=== PATIENT | male | born 1930 | race Caucasian/White ===

== ENCOUNTER 2018-10-07 08:00 | Inpatient (IN) | payer OTHER, BC ==
[2018-10-02 12:14] VITALS: BMI 25.5
--- NOTE | 2018-10-07 08:00 | HP ---
Satellite [facility] - Chief Complaint Chief Complaint: right hip pain - Past Medical History Allergies/Adverse Reactions: Allergies Allergy/AdvReac Type Severity Reaction Status Date / Time shellfish derived Allergy Severe Swelling Verified 10/02/18 11:52 Penicillins Allergy Unknown ANAPHYLACTI Verified 10/02/18 11:53 C - Current Medications Current Medications: Home Medications Medication Instructions Recorded Aspirin [Aspirin EC] 81 mg PO HS 10/02/18 Atorvastatin Ca [Lipitor] 40 mg PO HS 10/02/18 Cyanocobalamin [Vitamin B12 -] 500 mcg PO DAILY 10/02/18 Docusate Sodium [Colace] 100 mg PO BID 10/02/18 Duloxetine HCl [Cymbalta] 60 mg PO DAILY 10/02/18 Finasteride 5 mg PO HS 10/02/18 Folic Acid 0.8 mg PO DAILY 10/02/18 Metoprolol Tartrate 25 mg PO BID 10/02/18 Ticagrelor [Brilinta] 90 mg PO BID 10/02/18 Satellite Physical Exam - Physical Examination General Appearance: Well Nourished, Well Developed, Alert & Oriented x3 ENT: Clear Lung: Normal air movement Heart: Regular rate & rhythm Extremities: Other (right hip- + ttp, decr rom, nvi xrays show grade 4 hip djd) Neurological: Intact, Alert, Oriented Satellite Impression/Plan - Impression/Plan Impression: right hip djd Operative Procedure: right josh thr Date to be Performed: 10/07/18
[2018-10-07] MEDS ORDERED: GABAPENTIN 300 MG CAPSULE (FP) PO ONE (08:23)
[2018-10-07] MEDS ORDERED: CELECOXIB 200 MG CAPSULE PO ONE (08:23)
[2018-10-07] MEDS ORDERED: CEFAZOLIN 2 GM in DEXTROSE 5%-WATER - 50 ML IVPB ONE (08:23)
[2018-10-07] MEDS ORDERED: TRANEXAMIC ACID 1000 MG/10 ML VIAL IVPUSH ONE (08:23)
[2018-10-07] MEDS ORDERED: VANCOMYCIN 1,000 MG VIAL (RESTRICTED TO ID ONLY) ONE ×2 (09:57→11:10)
[2018-10-07] MEDS ORDERED: DEXAMETHASONE SOD PHOSPHATE/PF 10 MG/ML SDV ONE (10:12)
[2018-10-07] MEDS ORDERED: BUPIVACAINE HCL/PF (5 MG/ML) 30 ML VIAL IJ ONE (10:12)
[2018-10-07] MEDS ORDERED: MIDAZOLAM HCL 2 MG/2 ML SINGLE DOSE VIAL ONE ×2 (10:12→11:03)
[2018-10-07] MEDS ORDERED: fentaNYL CITRATE 250 MCG/5 ML VIAL ONE (11:03)
[2018-10-07] MEDS ORDERED: ROCURONIUM BROMIDE 50 MG/5 ML VIAL ONE (11:03)
[2018-10-07] MEDS ORDERED: ceFAZolin SODIUM 1 GM VIAL ONE (11:10)
[2018-10-07] MEDS ORDERED: ePHEDrine SULFATE 50 MG/1 ML AMPULE ONE (12:44)
[2018-10-07] MEDS ORDERED: MAG HYDROX/AL HYDROX/SIMETH 30 ML UNIT-DOSE CUP PO PRN (13:01)
[2018-10-07] MEDS ORDERED: MAGNESIUM HYDROX 2400MG/30ML ORAL SUSPENSION 30 ML CUP PO PRN (13:01)
[2018-10-07] MEDS ORDERED: ONDANSETRON 4 MG/2 ML VIAL IVPUSH PRN ×2 (13:01)
[2018-10-07] MEDS ORDERED: oxyCODONE HCL 5 MG TABLET PO PRN (13:02)
--- NOTE | 2018-10-07 13:03 | OP ---
Operative Note - Note: Operative Date: 10/07/18 (pratibha) Pre-Operative Diagnosis: right hip djd Operation: right josh thr Post-Operative Diagnosis: Same as Pre-op Surgeon: Zion García [employer] Production Machine Operator: Freddy Salomon Anesthesiologist/MEDICAL RECORDS LIBRARY PROFESSOR: Trae Temple Anesthesia: General, Local Specimens Removed: femoral head Estimated Blood Loss (mls): 150 Operative Report Dictated: Yes
[2018-10-07] MEDS ORDERED: NEOSTIGMINE METHYLSULFATE 0.5 MG/ML - 10 ML MDV ONE (13:12)
[2018-10-07] MEDS ORDERED: LACTATED RINGERS SOLUTION 1,000 ML IV SCH ×2 (13:15)
--- NOTE | 2018-10-07 17:54 | SPEC ---
DATE OF OPERATION: 10/07/2018 PREOPERATIVE DIAGNOSIS: Degenerative joint disease, right hip. POSTOPERATIVE DIAGNOSIS: Degenerative joint disease, right hip. PROCEDURE PERFORMED: Right total hip replacement with robotic-assisted navigation (MAKOplasty). SURGICAL ATTENDING: Zion García MD GAS MAKER: OBDULIA Dalal ANESTHESIA: Regional and spinal. CLOSURE: A Josh Total Hip System with a 54 Trident II press-fit acetabulum, with a number 8 Accolade II femoral stem, a metallic 36-mm plus 5 neck femoral head. Number 1 Vicryl for fascia, 0 and 2-0 subcutaneous, 3-0 V-Loc for skin, 4-0 undyed Vicryl for pin sites. ESTIMATED BLOOD LOSS: Approximately 150 mL. COMPLICATIONS: None. CONDITION: To the recovery room in stable condition. DESCRIPTION OF PROCEDURE: The patient was taken to the operating room on October 07, 2018. General and regional anesthesia was administered by the anesthesiologist. IV Kefzol and TXA were administered prophylactically prior to the case. The patient was placed in the lateral decubitus position will all prominences well-padded. The right hip area was prepped and draped in the usual sterile fashion. Using 3 small stab incisions over the iliac crest, 3 threaded pins were drilled in power fashion through the 2 tables of the crest. These pins were fastened and the navigation array for the Wolf navigation system. Next, a 12 to 15-cm curved longitudinal incision over the posterolateral aspect of the greater trochanter was incised. Hemostasis was achieved with Bovie cautery. Sharp dissection was carried down to level of the fascia. The fascia was opened the entire length of the incision, spreading the fibers of the gluteus janes in the direction of origin. A Charnley retractor was placed in this layer. Care was taken not to impale the sciatic nerve. The short external rotators were detached off the insertion of the greater trochanter and peeled off the capsule. A posterior capsulotomy was then performed. A check point was malleted into the greater trochanter and a point on the inferior pole of the patella was obtained as well. These 2 points were used to assess the preoperative offset and limb lengths of the hip. The hip was then dislocated. The femoral neck was then osteotomized down to the appropriate level as directed by the navigation device. Anterior and posterior retractors were placed, exposing the acetabulum. A circumferential labral excision was performed. A check point was malleted into the acetabulum as well. Multiple sites inside the acetabulum and around the rim were utilized to register the acetabulum with the navigation device. An excellent registration of less than 0.5 mm was obtained. The hip was then reamed with the appropriate reamer down to the appropriate depth, with the appropriate orientation and version as assessed on our preoperative plan for this patient. The reamer was removed and the acetabulum was inspected to have good bleeding surfaces throughout. The real acetabular cup was then malleted down into place, with the holes in the appropriate position, until an excellent fixation was obtained. No screws were necessary. The navigation device ensured appropriate orientation and version, with the depth as predetermined. The appropriate liner was then clipped into place. Attention was directed to the femur. The proximal femur was prepared by use a box chisel, a canal finder and serial broaches until the broach achieved excellent rigidity in the proximal femur with the appropriate version being applied. A calcar planer was used to smooth off the calcar flush with the trial components. A trial reduction with the appropriate head was done, and the hip was reduced. The hip was taken through a range of motion from full extension with external rotation to marked flexion, and was stable at 90 degrees of flexion. It was stable to marked abduction and internal rotation, with a positive hang test and negative telescoping. Limb lengths were ascertained visually as well as with the navigation device to be within the targeted range for this patient. The trial component was removed. The real component was then malleted into place. The head was cold welded to the trunnion, and the hip was reduced. Range of motion, stability and limb lengths were as described in the trial component. Then the hip was pulse antibiotic irrigated. Vancomycin powder was placed in the hip joint. The capsule was closed. The fascia was then closed as well using number 1 Vicryl interrupted suture, 0 and 2-0 subcutaneous, and 3-0 V-Loc for the skin. 4-0 undyed Vicryl was used to close the pin sites after the pins were removed. All check points were also removed. Sterile Aquacel dressing was applied. The patient was awakened from anesthesia and transferred into the supine position. Bilateral SCDs and an abduction pillow were placed. X-rays revealed excellent position of the components. The patient was transferred to the recovery room in stable condition, with no complications. Estimated blood loss was less than 100 mL. Marie CASTILLO/[id number]
[2018-10-07] MEDS: ACETAMINOPHEN 325 MG TABLET (FP) PO SCH ×2 (18:41→19:55)
[2018-10-07] MEDS: GABAPENTIN 100 MG CAPSULE (FP) PO SCH ×2 (18:41→21:32)
[2018-10-07] MEDS: CEFAZOLIN 2 GM/D5W 2 GM/50 ML ML IVPB SCH (19:56)
[2018-10-07] MEDS: SENNOSIDES/DOCUSATE COMBO (SENNA PLUS) TABLET (UD) PO SCH (21:32)
[2018-10-07] MEDS: ATORVASTATIN CA 40 MG TABLET (FP) PO SCH (21:32)
[2018-10-07] MEDS: METOPROLOL TARTRATE 25 MG TABLET (FP) PO SCH (21:33)
[2018-10-07] MEDS: FINASTERIDE 5 MG TABLET (FP) PO SCH (21:33)
[2018-10-08] MEDS: ACETAMINOPHEN 325 MG TABLET (FP) PO SCH ×4 (01:17→18:45)
[2018-10-08] MEDS: CEFAZOLIN 2 GM/D5W 2 GM/50 ML ML IVPB SCH ×2 (04:00→11:54)
[2018-10-08] MEDS: GABAPENTIN 100 MG CAPSULE (FP) PO SCH ×3 (06:26→21:17)
[2018-10-08] MEDS: oxyCODONE HCL 5 MG TABLET PO PRN ×2 (06:26→20:26)
[2018-10-08 08:01] LABS: HEMATOCRIT 30.8 % (35.4-49); HEMOGLOBIN 10.1 GM/dl (11.7-16.9); MCH 32.6 pg (25.7-33.7); MCHC 32.7 g/dl (32.0-35.9); MEAN CELL VOLUME 99.8 fl (80-96); MEAN PLT VOLUME 8.1 fl (7.5-11.1); PLATELET COUNT 225 K/MM3 (134-434); RBC 3.08 M/mm3 (4.00-5.60); RDW 13.9 % (11.9-15.9); WHITE BLOOD COUNT 11.9 K/mm3 (4.0-10.8)
--- NOTE | 2018-10-08 08:45 | PN ---
Progress Note (short form) - Note Progress Note: Pt is POD1 s/p right THR under block/spinal anesthesia. Pt is doing well today - minimal pain noted. He's scheduled for PT at 9am today. No anesthetic issues /complications.
[2018-10-08] MEDS ORDERED: PT OWN MED DRAWER 7, Y5N ONE ×2 (09:28→20:11)
[2018-10-08] MEDS: TICAGRELOR 90 MG TABLET PO SCH ×2 (10:00→21:17)
[2018-10-08] MEDS: PANTOPRAZOLE 40 MG TABLET (FP) PO SCH (10:00)
[2018-10-08] MEDS: SENNOSIDES/DOCUSATE COMBO (SENNA PLUS) TABLET (UD) PO SCH ×2 (10:01→21:16)
[2018-10-08] MEDS: METOPROLOL TARTRATE 25 MG TABLET (FP) PO SCH ×2 (10:01→21:18)
[2018-10-08] MEDS: DULoxetine HCL 30 MG CAPSULE.DR (FP) PO SCH (10:01)
[2018-10-08] MEDS: MULTIVITAMINS (DAILY MVI) TABLET (FP) PO SCH (10:01)
--- NOTE | 2018-10-08 11:53 | PN ---
Progress Note (short form) - Note Progress Note: Ortho Pt seen and examined s/p right josh thr pod #1 Selected Entries 10/08/18 05:00 Temperature 98.5 F Pulse Rate 78 Respiratory 19 Rate Blood Pressure 132/73 Laboratory Tests 10/08/18 07:20 WBC 11.9 H Hgb 10.1 L Hct 30.8 L Plt Count 225 dressing c/d/i, calf soft, nt nvi a/p PT hip precautions dvt ppx pain control d/c home tomorrow if stable
[2018-10-08] MEDS: FINASTERIDE 5 MG TABLET (FP) PO SCH (21:17)
[2018-10-08] MEDS: ATORVASTATIN CA 40 MG TABLET (FP) PO SCH (21:17)
[2018-10-08] MEDS ORDERED: ASPIRIN COATED 81 MG TABLET.EC PO SCH (22:00)
[2018-10-09] MEDS: ACETAMINOPHEN 325 MG TABLET (FP) PO SCH ×2 (05:18→08:20)
[2018-10-09] MEDS: GABAPENTIN 100 MG CAPSULE (FP) PO SCH (05:18)
[2018-10-09] MEDS: oxyCODONE HCL 5 MG TABLET PO PRN (05:18)
[2018-10-09 06:39] VITALS: TEMP 98.5
[2018-10-09 08:27] LABS: HEMATOCRIT 30.5 % (35.4-49); HEMOGLOBIN 9.8 GM/dl (11.7-16.9); MCH 31.9 pg (25.7-33.7); MCHC 31.9 g/dl (32.0-35.9); MEAN CELL VOLUME 99.9 fl (80-96); MEAN PLT VOLUME 8.3 fl (7.5-11.1); PLATELET COUNT 219 K/MM3 (134-434); RBC 3.06 M/mm3 (4.00-5.60); RDW 14.1 % (11.9-15.9); WHITE BLOOD COUNT 10.6 K/mm3 (4.0-10.8)
--- NOTE | 2018-10-09 08:37 | PN ---
Progress Note (short form) - Note Progress Note: Ortho Pt seen and examined s/p right josh thr pod #2 Selected Entries 10/09/18 06:00 Temperature 98.5 F Pulse Rate 78 Respiratory 19 Rate Blood Pressure 126/64 Laboratory Tests 10/09/18 07:04 WBC Pending Hgb Pending Hct Pending Plt Count Pending dressing c/d/i, calf soft, nt nvi a/p PT hip precautions dvt ppx pain control d/c home today f/u in 1 week
--- NOTE | 2018-10-09 08:38 | DS ---
Physical Examination Vital Signs: Vital Signs Temperature 98.5 F 10/09/18 06:00 Pulse Rate 78 10/09/18 06:00 Respiratory Rate 19 10/09/18 06:00 Blood Pressure 126/64 10/09/18 06:00 O2 Sat by Pulse Oximetry (%) 100 10/09/18 07:57 Discharge Summary Reason For Visit: OSTEOARTHRITIS Procedures: Principal: right thr Hospital Course: admitted for elective right josh thr, uneventful post-op, stable for d/c Condition: Good - Instructions Diet, Activity, Other Instructions: Post-op Instructions-Total Hip Replacement Call the office for a follow-up appointment in 1 week - [phone] Resume all home medications. Pain medication was sent into your pharmacy. Apply Graduated Compression Stockings (TEDs) to both lower extremities- remove daily for hygiene ONLY Apply Sequential Compression Device (SCDs) to both Lower extremities remove for PT and hygiene ONLY Apply cold packs to affected area for 15 minutes every 2 hours. Physical Therapist will come to your home for the first 5 days. You will be set up with outpatient PT at your first post-operative visit. Patient may ambulate as tolerated-encourage self care (at least every 2-3 hours while awake) with walker or cane Maintain Aquacel (waterproof) dressing to operative wound (will be removed by surgeon at first office visit) Shower with Aquacel dressing in place-if Aquacel integrity compromised, remove and apply dry sterile dressing and notify Orthopedist. DO NOT SHOWER unless Orthopedists approves without Aquacel dressing CONTACT THE OFFICE FOR ANY CHANGE IN YOUR CONDITION (for example-fever greater than 102 degrees, excessive bleeding from operative site, purulent drainage, severe swelling or pain) GO TO THE EMERGENCY ROOM IF THERE IS A MEDICAL EMERGENCY Hip Precautions: * Keep a rolled towel under affected heel while in bed or chair (to keep knee in extension) * Dependent upon approach: * Posterior - do not cross legs; do not sit on low chairs or toilets. * If you have any questions, please do not hesitate to call the office - . Referrals: Zion García MD [Staff Physician] - Disposition: VNS/HOME HEALTH CARE - Home Medications Comprehensive Discharge Medication List: Ambulatory Orders Aspirin [Aspirin EC] 81 mg PO HS 10/02/18 Atorvastatin Ca [Lipitor] 40 mg PO HS 10/02/18 Cyanocobalamin [Vitamin B12 -] 500 mcg PO DAILY 10/02/18 Docusate Sodium [Colace] 100 mg PO BID 10/02/18 Duloxetine HCl [Cymbalta] 60 mg PO DAILY 10/02/18 Finasteride 5 mg PO HS 10/02/18 Folic Acid 0.8 mg PO DAILY 10/02/18 Metoprolol Tartrate 25 mg PO BID 10/02/18 Ticagrelor [Brilinta -] 90 mg PO BID 10/02/18 Gabapentin 200 mg PO TID 10/07/18 Oxycodone HCl/Acetaminophen [Percocet 5-325 mg Tablet -] 1 - 2 tab PO Q6H #50 tab MDD 8 10/07/18 Tramadol HCl 50 mg PO PRN PRN 10/07/18
[2018-10-09] MEDS ORDERED: PT OWN MED DRAWER 7, Y5N ONE (09:44)
[2018-10-09] MEDS: TICAGRELOR 90 MG TABLET PO SCH (09:54)
[2018-10-09] MEDS: DULoxetine HCL 30 MG CAPSULE.DR (FP) PO SCH (09:54)
[2018-10-09] MEDS: MULTIVITAMINS (DAILY MVI) TABLET (FP) PO SCH (09:56)
[2018-10-09] MEDS: SENNOSIDES/DOCUSATE COMBO (SENNA PLUS) TABLET (UD) PO SCH (09:57)
[2018-10-09] MEDS: PANTOPRAZOLE 40 MG TABLET (FP) PO SCH (09:58)
[2018-10-09] MEDS: METOPROLOL TARTRATE 25 MG TABLET (FP) PO SCH ×2 (09:58→10:05)
[2018-10-09 10:05] VITALS: BP 94/54; PULSE 90
--- NOTE | 2018-10-10 17:40 | PATH ---
Surgical Pathology Report Patient Name: GLORIA PETERSON Med. Rec. #: [id number] /Age/Gender: 1930 (Age: 88) / M Account: [id number] Location: [facility] MED-SURG Taken: 10/07/2018 Received: 10/07/2018 Reported: 10/10/2018 Physicians: Zion García M.D. Specimen(s) Received RIGHT FEMORAL HEAD Clinical History Osteoarthritis Final Diagnosis RIGHT FEMORAL HEAD, RESECTION: DEGENERATIVE JOINT DISEASE, RIGHT HIP. Electronically Signed Rama Askew M.D. Gross Description Received in formalin, labeled "right femoral head," is a 5.0 x 5.0 x 4.8 cm. femoral head with a 0.8 cm in length portion of femoral neck attached. The margin of resection is smooth. There is a 5.5 cm greatest dimension area of eburnation present. The remaining articular surface is kim-yellow and diffusely nodular and granular. The underlying trabecular bone is yellow and hard. A player services representative section is submitted in one cassette, following decalcification. 10/09/2018 [facility]10/09/2018
== END 2018-10-09 11:00 | disposition home health service (06) | DRG 470 ==
LOC: FM/S 08:09
PROVIDERS: ADMIT Orthopaedic Surgery; ATTEND Orthopaedic Surgery
PROC: 8E0Y0CZ Robotic Assisted Procedure of Lower Extremity, Open Approach (ICD-10-PCS; 2018-10-07)
PROC: 0SR901A Replacement of Right Hip Joint with Metal Synthetic Substitute, Uncemented, Open Approach (ICD-10-PCS; principal; 2018-10-07 11:56)
DX: M16.11 Unilateral primary osteoarthritis, right hip (principal); Z88.0 Allergy status to penicillin
CPT/HCPCS: 36415; 73502-TC-RT-FY; 85027; 88304-TC; 88311-TC; 94760; 97116-GP; 97163-GP

== ENCOUNTER 2018-11-23 16:03 | Inpatient (IN) | payer OTHER, BC ==
--- NOTE | 2018-11-23 16:23 | PDOC ---
History of Present Illness - General Chief Complaint: Respiratory Stated Complaint: FEVER Time Seen by Provider: 11/23/18 16:21 - History of Present Illness Initial Comments: 11/23/18 16:22 88 yo M with h/o HTN, CAD s/p stent placement x 5, chronic prostatitis who p/w fever, and general malaise. Per patient family at bedside patient with general malaise beginning Saturday11/19/2018. Reports Tmax 103 Saturday11-22-2018. Has received multiple doses of Tylenol over multiple days. Patient with increased fatigue over 3-4 days. Also endorses ongoing dysuria from chronic prostatitis multiple years. Also endorses decreased appetitie and decreased PO intake. Patient denies ANAYA, vision change, palpitations, cough, wheezing, orthopena, PND , leg swelling/pain, N/V, F,C, CP, SOB, hematuria, BPR, abdominal pain, diarrhea , constipation, lightheadedness, weakness, sensory changes. PMHx: as noted above ROS: as noted SHx: Denies Etoh, IVDA, tobacco use Allergies: PCN, Shellfish Past History - Past Medical History Allergies/Adverse Reactions: Allergies Allergy/AdvReac Type Severity Reaction Status Date / Time shellfish derived Allergy Severe Swelling Verified 11/23/18 16:10 Penicillins Allergy Unknown ANAPHYLACTI Verified 11/23/18 16:10 C Home Medications: Ambulatory Orders Atorvastatin Ca [Lipitor] 40 mg PO HS 10/02/18 Duloxetine HCl [Cymbalta] 60 mg PO DAILY 10/02/18 Metoprolol Tartrate 25 mg PO BID 10/02/18 Ticagrelor [Brilinta -] 90 mg PO BID 10/02/18 Aspirin [Ecotrin] 81 mg PO DAILY 11/23/18 Finasteride [Proscar] 5 mg PO DAILY 11/23/18 Anemia: No Asthma: No Cancer: No Cardiac Disorders: Yes (2016-- FEELING HARDER TO WALK UP HILL,+STRESS TEST-CARD CATH-5 STENTS LAD,) CVA: No COPD: No CHF: No Dementia: No Diabetes: No GI Disorders: Yes (GERD) Disorders: Yes (BPH) HTN: Yes Hypercholesterolemia: Yes Liver Disease: No Seizures: No Thyroid Disease: No - Surgical History Abdominal Surgery: Yes (UMBILICAL HERNIA REPAIR 2012) Appendectomy: Yes (RUPTURED 2011) Cardiac Surgery: Yes (CARDIAC STENT X5 2016) Cholecystectomy: No Lung Surgery: No Neurologic Surgery: No Orthopedic Surgery: No - Suicide/Smoking/Psychosocial Hx Smoking History: Never smoked Have you smoked in the past 12 months: No Hx Alcohol Use: Yes (SOCIALLY) Drug/Substance Use Hx: No Substance Use Type: Alcohol Hx Substance Use Treatment: No Review of Systems - Review of Systems Comments:: 11/23/18 16:23 GENERAL/CONSTITUTIONAL: + fever. No chills. No weakness. HEAD, EYES, EARS, NOSE AND THROAT: No change in vision. No ear pain or discharge. No sore throat. CARDIOVASCULAR: No chest pain or shortness of breath RESPIRATORY: No cough, wheezing, or hemoptysis. GASTROINTESTINAL: No nausea, vomiting, diarrhea or constipation. GENITOURINARY:+ dysuria. No frequency, or change in urination. MUSCULOSKELETAL: No joint or muscle swelling or pain. No neck or back pain. SKIN: No rash NEUROLOGIC: No headache, vertigo, loss of consciousness, or change in strength/ sensation. ENDOCRINE: No increased thirst. No abnormal weight change HEMATOLOGIC/LYMPHATIC: No anemia, easy bleeding, or history of blood clots. ALLERGIC/IMMUNOLOGIC: No hives or skin allergy. *Physical Exam - Vital Signs Last Vital Signs Temp Pulse Resp BP Pulse Ox 97 F L 110 H 20 166/91 98 11/23/18 16:06 11/23/18 16:06 11/23/18 16:06 11/23/18 16:06 11/23/18 16:06 - Physical Exam Comments: 11/23/18 16:23 GENERAL: Awake, alert, and fully oriented, in no acute distress HEAD: No signs of trauma, normocephalic, atraumatic EYES: PERRLA, EOMI, sclera anicteric, conjunctiva clear ENT: Auricles normal inspection, hearing grossly normal, nares patent, oropharynx clear without exudates. Moist mucosa NECK: Normal ROM, supple, no lymphadenopathy, JVD, or masses LUNGS: No distress, speaks full sentences, clear to auscultation bilaterally HEART: Regular rate and rhythm, normal S1 and S2, no murmurs, rubs or gallops, peripheral pulses normal and equal bilaterally. ABDOMEN: Soft, nontender, normoactive bowel sounds. No guarding, no rebound. No masses EXTREMITIES : Normal inspection, Normal range of motion, no edema. No clubbing or cyanosis. NEUROLOGICAL: Cranial nerves II through XII grossly intact. Normal speech, normal gait, no focal sensorimotor deficits SKIN: Warm, Dry, normal turgor, no rashes or lesions noted ED Treatment Course - LABORATORY CBC & Chemistry Diagram: 11/23/18 17:08 11/23/18 17:08 Medical Decision Making - Medical Decision Making 11/23/18 16:48 88 yo M with h/o HTN, chronic prostatitis who p/w fever, and general malaise. HR 110, Rectal Temp 101.9, vitals otherwise wnl. Physical exam unremarkable. Pt. with dry mucous membranes. Will assess for VBI/TIA, cardiac dysarrythmias, hypoglycemia, electrolyte abnml, metabolic and toxic derangements, acid-base disturbances, infection. ED Course: Sepsis Protocol 11/23/18 17:37 EKG: Sinus Tachycardia with HR 114, with absent SKYLER, STD. Nml interval duration and axis. Nml R wave progression. 11/23/18 19:38 Laboratory Tests 11/23/18 11/23/18 11/23/18 17:08 17:08 17:08 WBC 5.8 Hgb 10.7 L Hct 31.5 L Plt Count 267 VBG pH POC VBG pCO2 POC VBG pO2 VBG HCO3 BUN 34 H Creatinine 1.6 H Lactic Acid Troponin I 0.43 H Urine Color Urine Protein Urine Ketones Urine Blood Urine Nitrite Ur Leukocyte Esterase Urine WBC (Auto) Urine RBC (Auto) Urine Casts (Auto) Urine Bacteria (Auto) 11/23/18 11/23/18 11/23/18 17:08 17:08 17:08 WBC Hgb Hct Plt Count VBG pH 7.44 H POC VBG pCO2 28.0 L POC VBG pO2 47.2 H VBG HCO3 18.6 L BUN Creatinine Lactic Acid 4.1 H* Troponin I Urine Color Yellow Urine Protein 2+ H Urine Ketones Trace H Urine Blood 1+ H Urine Nitrite Negative Ur Leukocyte Esterase 3+ H Urine WBC (Auto) 358 Urine RBC (Auto) 4 Urine Casts (Auto) 11 Urine Bacteria (Auto) 1515.3 Patient recieving wt. based fluids per sepsis guidelines treating UTI, Levaquin 750 IV Plan to admit for sepsis, UTI, GILMA, Patient endorsed to Dr. Ward. Admit to med/surg Dr. Sesay. *DC/Admit/Observation/Transfer Diagnosis at time of Disposition: GILMA (acute kidney injury) Sepsis Qualifiers: Sepsis type: sepsis due to unspecified organism Qualified Code(s): A41.9 - Sepsis, unspecified organism UTI (urinary tract infection) Qualifiers: Urinary tract infection type: site unspecified Hematuria presence: without hematuria Qualified Code(s): N39.0 - Urinary tract infection, site not specified - Discharge Dispostion Condition at time of disposition: Stable Decision to Admit order: Yes - Referrals Referrals: Francisco Javier Chamorro [Primary Care Provider] - - Patient Instructions - Post Discharge Activity
[2018-11-23] MEDS ORDERED: SODIUM CHLORIDE 2,395 ML IV ONE (16:49)
[2018-11-23 17:17] LABS: BASO % 0.2 % (0-2.0); EOS % 0.1 % (0-4.5); HEMATOCRIT 31.5 % (35.4-49); HEMOGLOBIN 10.7 GM/dL (11.7-16.9); LYMPH % 3.4 % (8-40); MCH 32.8 pg (25.7-33.7); MEAN CELL VOLUME 96.4 fl (80-96); MEAN PLT VOLUME 7.6 fl (7.5-11.1); MONO % 0.6 % (3.8-10.2); NEUT % 95.7 % (42.8-82.8); PLATELET COUNT 267 K/MM3 (134-434); RBC 3.26 M/mm3 (4.00-5.60); RDW 14.7 % (11.9-15.9); WHITE BLOOD COUNT 5.8 K/mm3 (4.0-10.0)
[2018-11-23 17:23] LABS: EPI CELLS 3.9 /HPF (0-5/HPF); URINE APPEARANCE CLOUDY; URINE BACTERIA 1515.3 /hpf (NEGATIVE); URINE BILIRUBIN NEGATIVE (NEGATIVE); URINE CASTS 11 /lpf (0-8); URINE COLOR YELLOW; URINE GLUCOSE (UA) NEGATIVE (NEGATIVE); URINE KETONE TRACE (NEGATIVE); URINE LEUK ESTERASE 3+ (NEGATIVE); URINE NITRITE NEGATIVE (NEGATIVE); URINE PROTEIN 2+ (NEGATIVE); URINE RBC 4 /hpf (0-4); URINE WBC 358 /hpf (0-5)
[2018-11-23 17:30] LABS: VENOUS PH 7.44 (7.31-7.41); VENOUS PO2 47.2 mmHg (30-40)
[2018-11-23 17:32] LABS: INR 1.08 (0.83-1.09); PROTHROMBIN TIME (PATIENT) 12.8 SEC (9.7-13.0)
[2018-11-23 17:34] LABS: ACTIVATED PTT 28.3 SECONDS (25.2-36.5)
[2018-11-23 17:48] LABS: ALBUMIN 2.9 g/dl (3.4-5.0); ALK PHOS 339 U/L (45-117); ANION GAP 14 MMOL/L (8-16); BILIRUBIN,TOTAL 0.8 mg/dL (0.2-1); BLOOD UREA NITROGEN 34 mg/dL (7-18); CALCIUM 8.3 mg/dL (8.5-10.1); CHLORIDE 106 mmol/L (98-107); CO2 19 mmol/L (21-32); CREATININE 1.6 mg/dL (0.55-1.3); GLUCOSE,RANDOM 107 mg/dL (74-106); POTASSIUM 3.8 mmol/L (3.5-5.1); SGOT/AST 35 U/L (15-37); SGPT/ALT 39 U/L (13-61); SODIUM 139 mmol/L (136-145); TOT PROT 5.9 g/dl (6.4-8.2)
[2018-11-23] MEDS ORDERED: LORazepam 2 MG/ML SDV VIAL ONE (19:27)
[2018-11-23 19:31] LABS: ANISOCYTOSIS 1+; MACROCYTOSIS 1+; PLATELET ESTIMATE NORMAL
[2018-11-23] MEDS ORDERED: SODIUM CHLORIDE 1,000 ML IV STA (19:41)
[2018-11-23] MEDS ORDERED: ACETAMINOPHEN 500 MG TABLET (FP) PO STA (19:56)
[2018-11-23] MEDS ORDERED: ACETAMINOPHEN 325 MG TABLET (FP) ONE (20:05)
--- NOTE | 2018-11-23 20:14 | PDOC ---
Documentation entered by Tristen Goode SCRIBE, acting as scribe for Karie Reyna MD. Karie Reyna MD: This documentation has been prepared by the Russel gaytan Daniel, SCRIBE, under my direction and personally reviewed by me in its entirety. I confirm that the documentation accurately reflects all work, treatment, procedures, and medical decision making performed by me. Attending Attestation - HPI HPI: 11/23/18 17:37 The patient is a 88 year old male with a past medical history of HTN, CAD (s/p stents x5), prostatitis, and anxiety here today for evaluation of fever. The patients family reports that the patient has had fevers (tmax 103) for the past 3-4 days. The patients family has been treating the patient with multiple doses of tylenol. Patient also has symptoms of malaise, general fatigue, and chronic dysuria. Patients family also notes that the patient has had decreased appetite and PO intake. Patient denies headache, lightheadedness. Denies fever, chills. Denies chest pain, shortness of breath. Denies nausea, vomiting, diarrhea, abdominal pain. Allergies: shellfish derived, penicillins PCP: Francisco Javier Chamorro - Physicial Exam PE: 11/23/18 18:12 wnwd 88 yo male has a fever,dysuria,decreased appetite head ncat neck suppl elungs cta b/l cvs tachycardia abd flat,nontender lungs cta b/l skin warm and dry no cva tenderness neuro axox3,moving all extremities psych very anxious 11/23/18 18:22 - Medical Decision Making 11/23/18 18:51 pt is tachycardia and febrile cbc no leukocytosis UA +358 wbc, +3 destiny LACTIC ACID =4.1 renal insufficiency cr 1.6, bun>30 troponin is 0.43 and he needs to be admitted for tropponin repeat imp urosepsis plan iv antibiotics/admission
[2018-11-23] MEDS: SODIUM CHLORIDE 1,000 ML IV SCH ×2 (20:30→21:44)
--- NOTE | 2018-11-23 20:44 | HP ---
CHIEF COMPLAINT: fever, malaise, dysuria PCP: HISTORY OF PRESENT ILLNESS: Patient is an 88 y/o M w/ PMHx HTN, CAD s/p stents x 5, chronic prostatitis, p/ w 4 days fever (Tmax 103 at home), malaise, lethargy, decreased appetite, worsening acute dysuria on chronic dysuria (long-standing prostatitis). ROS otherwise negative. On presentation, T 101.9, HR 110, vitals otherwise stable. EKG showing sinus tachycardia without acute ST changes, QTc 438. No leukocytosis. Cr 1.6 with no prior available. Initial lactate 4.1, initial troponin 0.43 with no prior available. UA grossly positive, 3+ LE 358 WBC 1515 bacteria. Given tylenol, IV fluid resuscitation, and levofloxacin in ED. Recent Travel: PAST MEDICAL HISTORY: As per HPI PAST SURGICAL HISTORY: Ulysses MANDEL Social History: Smoking: no Alcohol: social Drugs: no Family History: Allergies shellfish derived Allergy (Severe, Verified 11/23/18 16:10) Swelling Penicillins Allergy (Unknown, Verified 11/23/18 16:10) ANAPHYLACTIC HOME MEDICATIONS: Home Medications Medication Instructions Recorded Atorvastatin Ca [Lipitor] 40 mg PO HS 10/02/18 Duloxetine HCl [Cymbalta] 60 mg PO DAILY 10/02/18 Metoprolol Tartrate 25 mg PO BID 10/02/18 Ticagrelor [Brilinta -] 90 mg PO BID 10/02/18 Aspirin [Ecotrin] 81 mg PO DAILY 11/23/18 Finasteride [Proscar] 5 mg PO DAILY 11/23/18 REVIEW OF SYSTEMS As per HPI PHYSICAL EXAMINATION Vital Signs - 24 hr 11/23/18 11/23/18 16:06 18:05 Temperature 97 F L 101.9 F H Pulse Rate 110 H Respiratory 20 Rate Blood Pressure 166/91 O2 Sat by Pulse 98 Oximetry (%) GENERAL: A&Ox3, NAD HEENT: NC/AT, PERRLA, EOMI, MMM NECK: Normal range of motion, supple without lymphadenopathy, JVD, or masses. LUNGS: CTA b/l HEART: tachycardic no m/r/g ABDOMEN: +bs, soft, NT, ND UPPER EXTREMITIES: 2+ pulses, warm, well-perfused. No cyanosis. No clubbing. No peripheral edema. LOWER EXTREMITIES: 2+ pulses, warm, well-perfused. No calf tenderness. No peripheral edema. NEUROLOGICAL: spike maker, motor, sensory systems w/o focal deficit PSYCHIATRIC: Cooperative. Good eye contact. Appropriate mood and affect. SKIN: Warm, dry, normal turgor, no rashes or lesions noted, normal capillary refill. Laboratory Results - last 24 hr 11/23/18 11/23/18 11/23/18 17:08 17:08 17:08 WBC 5.8 RBC 3.26 L Hgb 10.7 L Hct 31.5 L MCV 96.4 H MCH 32.8 MCHC 34.0 RDW 14.7 Plt Count 267 MPV 7.6 Absolute Neuts (auto) 5.5 Neutrophils % 95.7 H Neutrophils % (Manual) 73.0 Band Neutrophils % 20.0 Lymphocytes % 3.4 L Lymphocytes % (Manual) 7.0 L Monocytes % 0.6 L Monocytes % (Manual) 0 L Eosinophils % 0.1 Eosinophils % (Manual) 0.0 Basophils % 0.2 Basophils % (Manual) 0.0 Myelocytes % (Man) 0 Promyelocytes % (Man) 0 Blast Cells % (Manual) 0 Nucleated RBC % 0 Metamyelocytes 0 Hypochromia 0 Platelet Estimate Normal Platelet Comment Present Polychromasia 1+ Poikilocytosis 0 Anisocytosis 1+ Microcytosis 1+ Macrocytosis 1+ PT with INR INR PTT (Actin FS) VBG pH POC VBG pCO2 POC VBG pO2 VBG HCO3 VBG O2 Sat (Zach) VBG Base Excess Sodium 139 Potassium 3.8 Chloride 106 Carbon Dioxide 19 L Anion Gap 14 BUN 34 H Creatinine 1.6 H Creat Clearance w eGFR 41.19 Random Glucose 107 H Lactic Acid Calcium 8.3 L Total Bilirubin 0.8 AST 35 ALT 39 Alkaline Phosphatase 339 H Creatine Kinase 166 Creatine Kinase Index 1.5 CK-MB (CK-2) 2.5 Troponin I 0.43 H Total Protein 5.9 L Albumin 2.9 L Urine Color Urine Appearance Urine pH Ur Specific [place] Urine Protein Urine Glucose (UA) Urine Ketones Urine Blood Urine Nitrite Urine Bilirubin Urine Urobilinogen Ur Leukocyte Esterase Urine WBC (Auto) Urine RBC (Auto) Urine Casts (Auto) U Epithel Cells (Auto) Urine Bacteria (Auto) 11/23/18 11/23/18 11/23/18 17:08 17:08 17:08 WBC RBC Hgb Hct MCV MCH MCHC RDW Plt Count MPV Absolute Neuts (auto) Neutrophils % Neutrophils % (Manual) Band Neutrophils % Lymphocytes % Lymphocytes % (Manual) Monocytes % Monocytes % (Manual) Eosinophils % Eosinophils % (Manual) Basophils % Basophils % (Manual) Myelocytes % (Man) Promyelocytes % (Man) Blast Cells % (Manual) Nucleated RBC % Metamyelocytes Hypochromia Platelet Estimate Platelet Comment Polychromasia Poikilocytosis Anisocytosis Microcytosis Macrocytosis PT with INR 12.80 INR 1.08 PTT (Actin FS) 28.3 VBG pH 7.44 H POC VBG pCO2 28.0 L POC VBG pO2 47.2 H VBG HCO3 18.6 L VBG O2 Sat (Zach) 83.6 H VBG Base Excess -4.1 L Sodium Potassium Chloride Carbon Dioxide Anion Gap BUN Creatinine Creat Clearance w eGFR Random Glucose Lactic Acid Calcium Total Bilirubin AST ALT Alkaline Phosphatase Creatine Kinase Creatine Kinase Index CK-MB (CK-2) Troponin I Total Protein Albumin Urine Color Yellow Urine Appearance Cloudy Urine pH 6.0 Ur Specific [place] 1.026 Urine Protein 2+ H Urine Glucose (UA) Negative Urine Ketones Trace H Urine Blood 1+ H Urine Nitrite Negative Urine Bilirubin Negative Urine Urobilinogen 1.0 Ur Leukocyte Esterase 3+ H Urine WBC (Auto) 358 Urine RBC (Auto) 4 Urine Casts (Auto) 11 U Epithel Cells (Auto) 3.9 Urine Bacteria (Auto) 1515.3 11/23/18 17:08 WBC RBC Hgb Hct MCV MCH MCHC RDW Plt Count MPV Absolute Neuts (auto) Neutrophils % Neutrophils % (Manual) Band Neutrophils % Lymphocytes % Lymphocytes % (Manual) Monocytes % Monocytes % (Manual) Eosinophils % Eosinophils % (Manual) Basophils % Basophils % (Manual) Myelocytes % (Man) Promyelocytes % (Man) Blast Cells % (Manual) Nucleated RBC % Metamyelocytes Hypochromia Platelet Estimate Platelet Comment Polychromasia Poikilocytosis Anisocytosis Microcytosis Macrocytosis PT with INR INR PTT (Actin FS) VBG pH POC VBG pCO2 POC VBG pO2 VBG HCO3 VBG O2 Sat (Zach) VBG Base Excess Sodium Potassium Chloride Carbon Dioxide Anion Gap BUN Creatinine Creat Clearance w eGFR Random Glucose Lactic Acid 4.1 H* Calcium Total Bilirubin AST ALT Alkaline Phosphatase Creatine Kinase Creatine Kinase Index CK-MB (CK-2) Troponin I Total Protein Albumin Urine Color Urine Appearance Urine pH Ur Specific [place] Urine Protein Urine Glucose (UA) Urine Ketones Urine Blood Urine Nitrite Urine Bilirubin Urine Urobilinogen Ur Leukocyte Esterase Urine WBC (Auto) Urine RBC (Auto) Urine Casts (Auto) U Epithel Cells (Auto) Urine Bacteria (Auto) ASSESSMENT/PLAN: 88 y/o M w/ PMHx HTN, CAD s/p stents x 5, chronic prostatitis, p/w 4 days fever (Tmax 103 at home), malaise, lethargy, decreased appetite, worsening acute dysuria on chronic dysuria #A -DDx UTI vs. acute on chronic prostatitis -Elevated troponin may be chronic or demand ischemia -GILMA vs. CKD -HTN -anxiety attacks -elevated lactate #P -trend troponins, lactate -cont Levofloxacin -NS @ 100 -restart home ASA, Brilinta, Lopressor, Duloxetine, Lipitor, finasteride -PO Ativan PRN -f/u BMP, Mg, Phos -Na-controlled diet -heparin subq for DVT PPx -full code -admit to telemetry Visit type - Emergency Visit Emergency Visit: Yes Care time: The patient presented to the Emergency Department on the above date and was hospitalized for further evaluation of their emergent condition. - New Patient This patient is new to me today: Yes Date on this admission: 11/23/18 - Critical Care Critical Care patient: No
[2018-11-23] MEDS ORDERED: METOPROLOL TARTRATE 25 MG TABLET (FP) ONE (22:04)
[2018-11-23] MEDS ORDERED: HEPARIN NA (PORCINE) 5,000 UNITS/ML 1ML VIAL ONE (22:04)
[2018-11-23] MEDS ORDERED: ATORVASTATIN CA 10 MG TABLET (FP) ONE (22:04)
[2018-11-23] MEDS: ATORVASTATIN CA 40 MG TABLET (FP) PO SCH (22:20)
[2018-11-23] MEDS: TICAGRELOR 90 MG TABLET PO SCH (22:20)
[2018-11-23] MEDS: HEPARIN NA (PORCINE) 5,000 UNITS/ML 1ML VIAL SQ SCH (22:20)
[2018-11-23] MEDS: METOPROLOL TARTRATE 25 MG TABLET (FP) PO SCH (22:20)
--- NOTE | 2018-11-23 23:58 | PN ---
Teaching Attending Note Name of Resident: Tristen Choi ATTENDING PHYSICIAN STATEMENT I saw and evaluated the patient. I reviewed the resident's note and discussed the case with the resident. I agree with the resident's findings and plan as documented. SUBJECTIVE: patient presented because of fever and chills OBJECTIVE: s1and s2 rrr abdomen soft non-tender lungs CTA good air enty ASSESSMENT AND PLAN: admit to tele for elevated troponin trend the troponin trend the lactic acid star IVPB levofloxacin Problem List - Problems (1) CAD (coronary artery disease), [place] coronary artery Assessment/Plan: c/w ticagrelor 90mg twice a day c/w aspirin c/w statin c/w beta-blockers cardiology consultation Code(s): I25.10 - ATHSCL HEART DISEASE OF [place] CORONARY ARTERY W/O ANG PCTRS (2) NSTEMI (non-ST elevated myocardial infarction) Assessment/Plan: without any active chest pain will consider type II HI cardiology consultation Code(s): I21.4 - NON-ST ELEVATION (NSTEMI) MYOCARDIAL INFARCTION (3) Ischemia due to increased oxygen demand Assessment/Plan: without any active chest pain will consider type II HI cardiology consultation Code(s): I24.8 - OTHER FORMS OF ACUTE ISCHEMIC HEART DISEASE (4) Dyslipidemia (high LDL; low HDL) Assessment/Plan: c/w statin Code(s): E78.5 - HYPERLIPIDEMIA, UNSPECIFIED (5) GILMA (acute kidney injury) Assessment/Plan: 2/2 to sepsis IVF hydration Code(s): N17.9 - ACUTE KIDNEY FAILURE, UNSPECIFIED (6) Sepsis Assessment/Plan: 2/2 to UTI will start the patient on levofloxacin 750mg daily Code(s): A41.9 - SEPSIS, UNSPECIFIED ORGANISM Qualifiers: Sepsis type: sepsis due to unspecified organism Qualified Code(s): A41.9 - Sepsis, unspecified organism (7) UTI (urinary tract infection) Code(s): N39.0 - URINARY TRACT INFECTION, SITE NOT SPECIFIED Qualifiers: Urinary tract infection type: acute cystitis Hematuria presence: without hematuria Qualified Code(s): N30.00 - Acute cystitis without hematuria (8) Metabolic acidosis with increased anion gap and accumulation of organic acids Code(s): E87.2 - ACIDOSIS (9) Lactic acid acidosis Code(s): E87.2 - ACIDOSIS
[2018-11-24] MEDS ORDERED: LORazepam 0.5 MG TABLET ONE (00:25)
[2018-11-24] MEDS: LORazepam 1 MG TABLET PO PRN (00:32)
[2018-11-24] MEDS ORDERED: HEPARIN NA (PORCINE) 5,000 UNITS/ML 1ML VIAL ONE (06:21)
[2018-11-24] MEDS: HEPARIN NA (PORCINE) 5,000 UNITS/ML 1ML VIAL SQ SCH ×3 (06:41→22:46)
[2018-11-24 06:54] LABS: BASO % 0.2 % (0-2.0); EOS % 0.1 % (0-4.5); HEMATOCRIT 27.1 % (35.4-49); LYMPH % 6.3 % (8-40); MCH 32.5 pg (25.7-33.7); MCHC 33.4 g/dl (32.0-35.9); MEAN CELL VOLUME 97.3 fl (80-96); MEAN PLT VOLUME 7.6 fl (7.5-11.1); MONO % 4.3 % (3.8-10.2); NEUT % 89.1 % (42.8-82.8); PLATELET COUNT 260 K/MM3 (134-434); RBC 2.78 M/mm3 (4.00-5.60); RDW 15.4 % (11.9-15.9); WHITE BLOOD COUNT 20.1 K/mm3 (4.0-10.0)
[2018-11-24 07:22] LABS: ANION GAP 7 MMOL/L (8-16); BLOOD UREA NITROGEN 30 mg/dL (7-18); CALCIUM 7.4 mg/dL (8.5-10.1); CHLORIDE 108 mmol/L (98-107); CO2 24 mmol/L (21-32); CREATININE 1.4 mg/dL (0.55-1.3); GLUCOSE,RANDOM 93 mg/dL (74-106); MAGNESIUM 2.1 mg/dL (1.8-2.4); PHOSPHOROUS 2.8 mg/dL (2.5-4.9); POTASSIUM 3.3 mmol/L (3.5-5.1); SODIUM 139 mmol/L (136-145)
[2018-11-24] MEDS ORDERED: POTASSIUM CHLORIDE TABS 20 MEQ TABLET.ER (FP) PO ONE ×2 (07:59→09:32)
[2018-11-24 09:00] LABS: ALBUMIN 2.4 g/dl (3.4-5.0); ALK PHOS 223 U/L (45-117); BILIRUBIN,DIRECT 0.2 mg/dL (0.0-0.2); BILIRUBIN,TOTAL 0.4 mg/dL (0.2-1); GAMMA GLUTAMYL TRANSPEPTIDASE 317 U/L (5-85); SGOT/AST 34 U/L (15-37); SGPT/ALT 40 U/L (13-61); TOT PROT 5.3 g/dl (6.4-8.2)
--- NOTE | 2018-11-24 09:22 | CON.CARD ---
Consult Consult Specialty:: cardio - History of Present Illness Chief Complaint: fever History of Present Illness: 88 M here with fever. p/w 4 days fever (Tmax 103 at home), malaise, lethargy, decreased appetite, worsening acute dysuria on chronic dysuria (long-standing prostatitis). ER findings: T 101.9, HR 110, vitals otherwise stable. trop 0.4 without ischemic ecg changes. Cr 1.6 with no prior available. Initial lactate 4.1. dirty UA PMH: HTN, CAD s/p stents on Brilinta, chronic prostatitis - Alcohol/Substance Use Hx Alcohol Use: Yes (SOCIALLY) - Smoking History Smoking history: Never smoked Have you smoked in the past 12 months: No Home Medications - Allergies Allergies/Adverse Reactions: Allergies Allergy/AdvReac Type Severity Reaction Status Date / Time shellfish derived Allergy Severe Swelling Verified 11/23/18 16:10 Penicillins Allergy Unknown ANAPHYLACTI Verified 11/23/18 16:10 C - Home Medications Home Medications: Ambulatory Orders Atorvastatin Ca [Lipitor] 40 mg PO HS 10/02/18 Duloxetine HCl [Cymbalta] 60 mg PO DAILY 10/02/18 Metoprolol Tartrate 25 mg PO BID 10/02/18 Ticagrelor [Brilinta -] 90 mg PO BID 10/02/18 Aspirin [Ecotrin] 81 mg PO DAILY 11/23/18 Finasteride [Proscar] 5 mg PO DAILY 11/23/18 Vital Signs: Vital Signs Temperature 97.9 F 11/24/18 07:33 Pulse Rate 64 11/24/18 07:33 Respiratory Rate 20 11/24/18 07:33 Blood Pressure 110/63 11/24/18 07:33 O2 Sat by Pulse Oximetry (%) 99 11/24/18 07:33 - Other Data Labs, Other Data: CBC, BMP 11/24/18 05:50 11/24/18 05:50 INR, PTT INR 1.08 (0.83-1.09) 11/23/18 17:08 Troponin, BNP 11/23/18 11/23/18 17:08 20:26 Troponin I 0.43 H 0.41 H Troponin, BNP 11/23/18 11/23/18 17:08 20:26 Troponin I 0.43 H 0.41 H Laboratory Tests 04/11/23/18 11/23/18 17:08 17:08 20:26 WBC Hgb Plt Count Sodium Potassium Carbon Dioxide BUN Creatinine Lactic Acid 4.1 H* 1.5 AST ALT Creatine Kinase 166 Troponin I 0.43 H 11/23/18 11/24/18 11/24/18 20:26 05:50 05:50 WBC 20.1 H Hgb 9.0 L Plt Count 260 Sodium 139 Potassium 3.3 L Carbon Dioxide 24 BUN 30 H Creatinine 1.4 H Lactic Acid AST 34 ALT 40 Creatine Kinase Troponin I 0.41 H Assessment/Plan ECG: sinus tach, normal axis. mild NS ST abn (no prior) CXR: clear lungs/pleura h/o CAD, elevated troponin -trop indeterminate range with flat trend (0.4 x2) c/w sepsis myonecrosis vs supply/demand Type II NM (not ACS) -on DAPT including full-dose Brilinta--details of prior PCIs including timing unknown -cont home DAPT, bb, statin -echo for LV fxn HTN: -bp stable -observe on bb, in setting of sepsis sepsis, prostatitis vs UTI -hemodynamically stable -lactate normalized on repeat -abx, fluids and w/u per hospitalist GILMA: -baseline renal fxn unknown -creat improving with fluids
[2018-11-24] MEDS ORDERED: KCL 10 MEQ IVPB 30 MEQ/300 ML INFUS.BAG IVPB ONE (09:32)
[2018-11-24] MEDS: KCL 10 MEQ IVPB 10 MEQ/100 ML INFUS.BAG IVPB SCH ×3 (09:50→13:05)
[2018-11-24] MEDS: DULoxetine HCL 30 MG CAPSULE.DR (FP) PO SCH (10:00)
[2018-11-24] MEDS: ASPIRIN COATED 81 MG TABLET.EC PO SCH (10:00)
[2018-11-24] MEDS: METOPROLOL TARTRATE 25 MG TABLET (FP) PO SCH ×2 (10:00→22:46)
[2018-11-24] MEDS: FINASTERIDE 5 MG TABLET (FP) PO SCH (10:00)
[2018-11-24] MEDS: TICAGRELOR 90 MG TABLET PO SCH ×2 (10:00→22:46)
--- NOTE | 2018-11-24 10:29 | PN ---
Progress Note (short form) - Note Progress Note: called to evaluate pt for h/o CAD, no urgent active CV issues. 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 dr quintana informed--they will see pt
--- NOTE | 2018-11-24 10:57 | EKG ---
Test Reason : Blood Pressure : / mmHG Vent. Rate : 114 BPM Atrial Rate : 114 BPM P-R Int : 128 ms QRS Dur : 074 ms QT Int : 318 ms P-R-T Axes : 059 070 061 degrees QTc Int : 438 ms SINUS TACHYCARDIA POSSIBLE LEFT ATRIAL ENLARGEMENT BORDERLINE ECG NO PREVIOUS ECGS AVAILABLE Confirmed by KEVNI WELCH MD ([id number]) on 11/24/2018 10:57:19 AM Referred By: Confirmed By:KEVIN WELCH MD
[2018-11-24 12:00] LABS: ANISOCYTOSIS 0; MACROCYTOSIS 0; PLATELET ESTIMATE NORMAL
--- NOTE | 2018-11-24 12:36 | PN ---
Physical Exam: SUBJECTIVE: Patient seen and examined at bedside. Feels better today. OBJECTIVE: Vital Signs Period Temp Pulse Resp BP Sys/[place] Pulse Ox Last 24 Hr 97 F-101.9 F 64-110 20-20 110-166/63-91 97-99 GENERAL: The patient is awake, alert, and fully oriented, in no acute distress. HEAD: Normal with no signs of trauma. EYES: PERRL, extraocular movements intact, sclera anicteric, conjunctiva clear. No ptosis. ENT: Ears normal, nares patent, oropharynx clear without exudates, moist mucous membranes. NECK: Trachea midline, full range of motion, supple. LUNGS: Breath sounds equal, clear to auscultation bilaterally, no wheezes, no crackles, no accessory muscle use. HEART: Regular rate and rhythm, S1, S2 without murmur, rub or gallop. ABDOMEN: Soft, nontender, nondistended, normoactive bowel sounds, no guarding, no rebound, no hepatosplenomegaly, no masses. EXTREMITIES: 2+ pulses, warm, well-perfused, no edema. NEUROLOGICAL: Cranial nerves II through XII grossly intact. Normal speech, gait not observed. PSYCH: Normal mood, normal affect. SKIN: Warm, dry, normal turgor, no rashes or lesions noted Laboratory Results - last 24 hr 11/23/18 11/23/18 11/23/18 17:08 17:08 17:08 WBC 5.8 RBC 3.26 L Hgb 10.7 L Hct 31.5 L MCV 96.4 H MCH 32.8 MCHC 34.0 RDW 14.7 Plt Count 267 MPV 7.6 Absolute Neuts (auto) 5.5 Neutrophils % 95.7 H Neutrophils % (Manual) 73.0 Band Neutrophils % 20.0 Lymphocytes % 3.4 L Lymphocytes % (Manual) 7.0 L Monocytes % 0.6 L Monocytes % (Manual) 0 L Eosinophils % 0.1 Eosinophils % (Manual) 0.0 Basophils % 0.2 Basophils % (Manual) 0.0 Myelocytes % (Man) 0 Promyelocytes % (Man) 0 Blast Cells % (Manual) 0 Nucleated RBC % 0 Metamyelocytes 0 Hypochromia 0 Platelet Estimate Normal Platelet Comment Present Polychromasia 1+ Poikilocytosis 0 Anisocytosis 1+ Microcytosis 1+ Macrocytosis 1+ PT with INR INR PTT (Actin FS) VBG pH POC VBG pCO2 POC VBG pO2 VBG HCO3 VBG O2 Sat (Zach) VBG Base Excess Sodium 139 Potassium 3.8 Chloride 106 Carbon Dioxide 19 L Anion Gap 14 BUN 34 H Creatinine 1.6 H Creat Clearance w eGFR 41.19 Random Glucose 107 H Lactic Acid Calcium 8.3 L Phosphorus Magnesium Total Bilirubin 0.8 Direct Bilirubin GGT AST 35 ALT 39 Alkaline Phosphatase 339 H Creatine Kinase 166 Creatine Kinase Index 1.5 CK-MB (CK-2) 2.5 Troponin I 0.43 H Total Protein 5.9 L Albumin 2.9 L Urine Color Urine Appearance Urine pH Ur Specific [place] Urine Protein Urine Glucose (UA) Urine Ketones Urine Blood Urine Nitrite Urine Bilirubin Urine Urobilinogen Ur Leukocyte Esterase Urine WBC (Auto) Urine RBC (Auto) Urine Casts (Auto) U Epithel Cells (Auto) Urine Bacteria (Auto) 11/23/18 11/23/18 11/23/18 17:08 17:08 17:08 WBC RBC Hgb Hct MCV MCH MCHC RDW Plt Count MPV Absolute Neuts (auto) Neutrophils % Neutrophils % (Manual) Band Neutrophils % Lymphocytes % Lymphocytes % (Manual) Monocytes % Monocytes % (Manual) Eosinophils % Eosinophils % (Manual) Basophils % Basophils % (Manual) Myelocytes % (Man) Promyelocytes % (Man) Blast Cells % (Manual) Nucleated RBC % Metamyelocytes Hypochromia Platelet Estimate Platelet Comment Polychromasia Poikilocytosis Anisocytosis Microcytosis Macrocytosis PT with INR 12.80 INR 1.08 PTT (Actin FS) 28.3 VBG pH 7.44 H POC VBG pCO2 28.0 L POC VBG pO2 47.2 H VBG HCO3 18.6 L VBG O2 Sat (Zach) 83.6 H VBG Base Excess -4.1 L Sodium Potassium Chloride Carbon Dioxide Anion Gap BUN Creatinine Creat Clearance w eGFR Random Glucose Lactic Acid Calcium Phosphorus Magnesium Total Bilirubin Direct Bilirubin GGT AST ALT Alkaline Phosphatase Creatine Kinase Creatine Kinase Index CK-MB (CK-2) Troponin I Total Protein Albumin Urine Color Yellow Urine Appearance Cloudy Urine pH 6.0 Ur Specific [place] 1.026 Urine Protein 2+ H Urine Glucose (UA) Negative Urine Ketones Trace H Urine Blood 1+ H Urine Nitrite Negative Urine Bilirubin Negative Urine Urobilinogen 1.0 Ur Leukocyte Esterase 3+ H Urine WBC (Auto) 358 Urine RBC (Auto) 4 Urine Casts (Auto) 11 U Epithel Cells (Auto) 3.9 Urine Bacteria (Auto) 1515.3 11/23/18 11/23/18 11/23/18 17:08 20:26 20:26 WBC RBC Hgb Hct MCV MCH MCHC RDW Plt Count MPV Absolute Neuts (auto) Neutrophils % Neutrophils % (Manual) Band Neutrophils % Lymphocytes % Lymphocytes % (Manual) Monocytes % Monocytes % (Manual) Eosinophils % Eosinophils % (Manual) Basophils % Basophils % (Manual) Myelocytes % (Man) Promyelocytes % (Man) Blast Cells % (Manual) Nucleated RBC % Metamyelocytes Hypochromia Platelet Estimate Platelet Comment Polychromasia Poikilocytosis Anisocytosis Microcytosis Macrocytosis PT with INR INR PTT (Actin FS) VBG pH POC VBG pCO2 POC VBG pO2 VBG HCO3 VBG O2 Sat (Zahc) VBG Base Excess Sodium Potassium Chloride Carbon Dioxide Anion Gap BUN Creatinine Creat Clearance w eGFR Random Glucose Lactic Acid 4.1 H* 1.5 Calcium Phosphorus Magnesium Total Bilirubin Direct Bilirubin GGT AST ALT Alkaline Phosphatase Creatine Kinase Creatine Kinase Index CK-MB (CK-2) Troponin I 0.41 H Total Protein Albumin Urine Color Urine Appearance Urine pH Ur Specific [place] Urine Protein Urine Glucose (UA) Urine Ketones Urine Blood Urine Nitrite Urine Bilirubin Urine Urobilinogen Ur Leukocyte Esterase Urine WBC (Auto) Urine RBC (Auto) Urine Casts (Auto) U Epithel Cells (Auto) Urine Bacteria (Auto) 11/24/18 11/24/18 05:50 05:50 WBC 20.1 H RBC 2.78 L Hgb 9.0 L Hct 27.1 L MCV 97.3 H MCH 32.5 MCHC 33.4 RDW 15.4 Plt Count 260 MPV 7.6 Absolute Neuts (auto) 17.9 H Neutrophils % 89.1 H Neutrophils % (Manual) Band Neutrophils % Lymphocytes % 6.3 L D Lymphocytes % (Manual) Monocytes % 4.3 D Monocytes % (Manual) Eosinophils % 0.1 Eosinophils % (Manual) Basophils % 0.2 Basophils % (Manual) Myelocytes % (Man) Promyelocytes % (Man) Blast Cells % (Manual) Nucleated RBC % 0 Metamyelocytes Hypochromia Platelet Estimate Platelet Comment Polychromasia Poikilocytosis Anisocytosis Microcytosis Macrocytosis PT with INR INR PTT (Actin FS) VBG pH POC VBG pCO2 POC VBG pO2 VBG HCO3 VBG O2 Sat (Zach) VBG Base Excess Sodium 139 Potassium 3.3 L Chloride 108 H Carbon Dioxide 24 Anion Gap 7 L BUN 30 H Creatinine 1.4 H Creat Clearance w eGFR 48.05 Random Glucose 93 Lactic Acid Calcium 7.4 L Phosphorus 2.8 Magnesium 2.1 Total Bilirubin 0.4 Direct Bilirubin 0.2 GGT 317 H AST 34 ALT 40 Alkaline Phosphatase 223 H Creatine Kinase Creatine Kinase Index CK-MB (CK-2) Troponin I Total Protein 5.3 L Albumin 2.4 L Urine Color Urine Appearance Urine pH Ur Specific [place] Urine Protein Urine Glucose (UA) Urine Ketones Urine Blood Urine Nitrite Urine Bilirubin Urine Urobilinogen Ur Leukocyte Esterase Urine WBC (Auto) Urine RBC (Auto) Urine Casts (Auto) U Epithel Cells (Auto) Urine Bacteria (Auto) Active Medications Generic Name Dose Route Start Last Admin Trade Name Freq PRN Reason Stop Dose Admin Aspirin 81 mg 11/24/18 10:00 11/24/18 10:00 Ecotrin - PO 81 mg DAILY NUNU Administration Atorvastatin Calcium 40 mg 11/23/18 22:00 11/23/18 22:20 Lipitor - PO 40 mg HS NUNU Administration Duloxetine HCl 60 mg 11/24/18 10:00 11/24/18 10:00 Cymbalta - PO 60 mg DAILY NUNU Administration Finasteride 5 mg 11/24/18 10:00 11/24/18 10:00 Proscar - PO 5 mg DAILY NUNU Administration Heparin Sodium (Porcine) 5,000 unit 11/23/18 22:00 11/24/18 06:41 Heparin - SQ 5,000 unit TID NUNU Administration Sodium Chloride 1,000 mls @ 100 mls/hr 11/23/18 20:30 11/23/18 20:30 Normal Saline - IV 100 mls/hr ASDIR NUNU Administration Levofloxacin 750 mg in 150 mls @ 100 mls/hr 11/25/18 10:00 Levaquin 750 Mg Premixed Ivpb - IVPB Q48H NUNU Protocol Lorazepam 1.5 mg 11/23/18 20:25 11/24/18 00:32 Ativan - PO 1.5 mg Q4H PRN Administration ANXIETY Metoprolol Tartrate 25 mg 11/23/18 22:00 11/24/18 10:00 Lopressor - PO 25 mg BID NUNU Administration Ticagrelor 90 mg 11/23/18 22:00 11/24/18 10:00 Brilinta - PO 90 mg BID NUNU Administration ASSESSMENT/PLAN: 88 y/o M w/ PMHx HTN, CAD s/p stents x 5, chronic prostatitis, p/w 4 days fever (Tmax 103 at home), malaise, lethargy, decreased appetite, worsening acute dysuria on chronic dysuria #A - Sepsis 2/2 UTI vs. acute on chronic prostatitis -Elevated troponin may be chronic or demand ischemia -GILMA vs. CKD >> Improving -HTN -anxiety attacks ??? -elevated lactate >> Normalized. #P -trend troponins, lactate >>Trended down. -cont Levofloxacin for now. >> F/U urine cx. -NS @ 100 -restart home ASA, Brilinta, Lopressor, Duloxetine, Lipitor, finasteride -PO Ativan PRN -f/u BMP, Mg, Phos -Na-controlled diet -heparin subq for DVT PPx -full code - telemetry for Troponinemia >> NSTEMI ? TYPE 2 Pending cardio input. Plan d.w the patient/ at bedside. Visit type - Emergency Visit Emergency Visit: Yes ED Registration Date: 11/23/18 Care time: The patient presented to the Emergency Department on the above date and was hospitalized for further evaluation of their emergent condition. - New Patient This patient is new to me today: Yes Date on this admission: 11/24/18 - Critical Care Critical Care patient: No - Discharge Referral Referred to [id number] No
--- NOTE | 2018-11-24 13:09 | CON.CARD ---
Consult Consult Specialty:: cardiology Referred by:: Shama Frey Reason for Consultation:: Elevated cardiac markers - History of Present Illness Chief Complaint: Fever chills and dysuria History of Present Illness: The patient is an 88-year-old man, we have a history of hypertension, hyperlipidemia, GERD, spinal stenosis, chronic kidney disease, severe three- vessel coronary artery disease, Deemed a poor candidate for CABG , status post left main/LAD/circumflex stenting 10/13 transient atrial fibrillation at that time, now presenting with fevers, chills, and dysuria. Found to have elevated troponin and creatinine in urosepsis. The patient is breathing comfortably. Denies chest pains. No palpitations. - History Source History Provided By: Patient, Medical Record Limitations to Obtaining History: No Limitations - Past Medical History Cardio/Vascular: Yes: AFIB, CAD, HTN, Hyperlipdemia Renal/: Yes: Renal Inusuff, UTI Heme/Onc: Yes: Anemia Infectious Disease: Yes: Other (urinary tract infection) Psych: Yes: Anxiety - Alcohol/Substance Use Hx Alcohol Use: Yes (SOCIALLY) - Smoking History Smoking history: Never smoked Have you smoked in the past 12 months: No Home Medications - Allergies Allergies/Adverse Reactions: Allergies Allergy/AdvReac Type Severity Reaction Status Date / Time shellfish derived Allergy Severe Swelling Verified 11/23/18 16:10 Penicillins Allergy Unknown ANAPHYLACTI Verified 11/23/18 16:10 C - Home Medications Home Medications: Ambulatory Orders Atorvastatin Ca [Lipitor] 40 mg PO HS 10/02/18 Duloxetine HCl [Cymbalta] 60 mg PO DAILY 10/02/18 Metoprolol Tartrate 25 mg PO BID 10/02/18 Ticagrelor [Brilinta -] 90 mg PO BID 10/02/18 Aspirin [Ecotrin] 81 mg PO DAILY 11/23/18 Finasteride [Proscar] 5 mg PO DAILY 11/23/18 Review of Systems - Review of Systems Constitutional: reports: Fever, Lethargy, Malaise Eyes: reports: No Symptoms HENT: reports: No Symptoms Neck: reports: No Symptoms Cardiovascular: reports: No Symptoms Respiratory: reports: No Symptoms Gastrointestinal: reports: No Symptoms Genitourinary: reports: Burning, Dysuria, Frequency Breasts: reports: No Symptoms Reported Musculoskeletal: reports: No Symptoms Integumentary: reports: No Symptoms Neurological: reports: No Symptoms Endocrine: reports: No Symptoms Hematology/Lymphatic: reports: No Symptoms Psychiatric: reports: No Symptoms Vital Signs: Vital Signs Temperature 97.9 F 11/24/18 07:33 Pulse Rate 64 11/24/18 07:33 Respiratory Rate 20 11/24/18 07:33 Blood Pressure 110/63 11/24/18 07:33 O2 Sat by Pulse Oximetry (%) 99 11/24/18 07:33 Constitutional: Yes: Well Nourished, No Distress, Calm Eyes: Yes: WNL, Conjunctiva Clear, EOM Intact HENT: Yes: WNL, Atraumatic, Normocephalic Neck: Yes: WNL, Supple, Trachea Midline Respiratory: Yes: WNL, Regular, Wheezes Gastrointestinal: Yes: WNL Cardiovascular: Yes: WNL, Regular Rate and Rhythm JVD: No Carotid Bruit: No PMI: Non-Displaced Heart Sounds: Yes: S1, S2 Murmur: Yes: Systolic Murmur, Grade 2 Musculoskeletal: Yes: WNL Extremities: Yes: WNL Edema: No Peripheral Pulses WNL: Yes Integumentary: Yes: WNL Neurological: Yes: WNL, Alert, Oriented ...Motor Strength: WNL Psychiatric: Yes: WNL - Other Data Labs, Other Data: CBC, BMP 11/24/18 05:50 11/24/18 05:50 INR, PTT INR 1.08 (0.83-1.09) 11/23/18 17:08 Troponin, BNP 11/23/18 11/23/18 17:08 20:26 Troponin I 0.43 H 0.41 H Troponin, BNP 11/23/18 11/23/18 17:08 20:26 Troponin I 0.43 H 0.41 H Assessment/Plan The patient is an 88-year-old man, we have a history of hypertension, hyperlipidemia, GERD, spinal stenosis, chronic kidney disease, severe three- vessel coronary artery disease, Deemed a poor candidate for CABG , status post left main/LAD/circumflex stenting 10/13 transient atrial fibrillation at that time, now presenting with fevers, chills, and dysuria. Found to have elevated troponin and creatinine in urosepsis. The patient is breathing comfortably. Denies chest pains. No palpitations. The ECG showed sinus tachycardia, left atrial enlargement without acute ST-T changes. Troponins and creatinine were slightly elevated on admission. Both are trending down. There is no CHF. No evidence of ischemia nor acute coronary syndrome. There is no need for further cardiac workup at this point. Please resume all home cardiac medications as the patient was taking them. Would monitor for further 24 hours. Treat urinary tract infection. Cardiac stable. Please do not hesitate to call us PRN.
[2018-11-24] MEDS ORDERED: SODIUM CHLORIDE 500 ML IV STA (13:43)
--- NOTE | 2018-11-24 14:09 | PN ---
Physical Exam: SUBJECTIVE: Patient seen and examined this am in the presence of and daughter. Feels better, no longer having dysuria or chills. Patient of Dr. Rhina Chamorro. S/P Hip replacement 7 weeks ago. OBJECTIVE: Vital Signs Period Temp Pulse Resp BP Sys/Mcgowan Pulse Ox Last 24 Hr 97 F-101.9 F 64-110 20-20 110-166/63-91 97-99 GENERAL: A&Ox3, NAD HEAD: NCAT EYES: PERRL, EOMI ENT: moist mucous membranes NECK: Supple LUNGS: CTA B/L, no wheezes, no crackles HEART: Regular rate and rhythm, S1, S2 without murmur ABDOMEN: Soft, nontender, nondistended, + bowel sounds, no guarding EXTREMITIES: no edema NEUROLOGICAL: Cranial nerves II through XII grossly intact. Normal speech PSYCH: Anxious SKIN: Warm, dry Laboratory Results - last 24 hr 11/23/18 11/23/18 11/23/18 17:08 17:08 17:08 WBC 5.8 RBC 3.26 L Hgb 10.7 L Hct 31.5 L MCV 96.4 H MCH 32.8 MCHC 34.0 RDW 14.7 Plt Count 267 MPV 7.6 Absolute Neuts (auto) 5.5 Neutrophils % 95.7 H Neutrophils % (Manual) 73.0 Band Neutrophils % 20.0 Lymphocytes % 3.4 L Lymphocytes % (Manual) 7.0 L Monocytes % 0.6 L Monocytes % (Manual) 0 L Eosinophils % 0.1 Eosinophils % (Manual) 0.0 Basophils % 0.2 Basophils % (Manual) 0.0 Myelocytes % (Man) 0 Promyelocytes % (Man) 0 Blast Cells % (Manual) 0 Nucleated RBC % 0 Metamyelocytes 0 Hypochromia 0 Platelet Estimate Normal Platelet Comment Present Polychromasia 1+ Poikilocytosis 0 Anisocytosis 1+ Microcytosis 1+ Macrocytosis 1+ PT with INR INR PTT (Actin FS) VBG pH POC VBG pCO2 POC VBG pO2 VBG HCO3 VBG O2 Sat (Zach) VBG Base Excess Sodium 139 Potassium 3.8 Chloride 106 Carbon Dioxide 19 L Anion Gap 14 BUN 34 H Creatinine 1.6 H Creat Clearance w eGFR 41.19 Random Glucose 107 H Lactic Acid Calcium 8.3 L Phosphorus Magnesium Total Bilirubin 0.8 Direct Bilirubin GGT AST 35 ALT 39 Alkaline Phosphatase 339 H Creatine Kinase 166 Creatine Kinase Index 1.5 CK-MB (CK-2) 2.5 Troponin I 0.43 H Total Protein 5.9 L Albumin 2.9 L Urine Color Urine Appearance Urine pH Ur Specific Amo Urine Protein Urine Glucose (UA) Urine Ketones Urine Blood Urine Nitrite Urine Bilirubin Urine Urobilinogen Ur Leukocyte Esterase Urine WBC (Auto) Urine RBC (Auto) Urine Casts (Auto) U Epithel Cells (Auto) Urine Bacteria (Auto) 11/23/18 11/23/18 11/23/18 17:08 17:08 17:08 WBC RBC Hgb Hct MCV MCH MCHC RDW Plt Count MPV Absolute Neuts (auto) Neutrophils % Neutrophils % (Manual) Band Neutrophils % Lymphocytes % Lymphocytes % (Manual) Monocytes % Monocytes % (Manual) Eosinophils % Eosinophils % (Manual) Basophils % Basophils % (Manual) Myelocytes % (Man) Promyelocytes % (Man) Blast Cells % (Manual) Nucleated RBC % Metamyelocytes Hypochromia Platelet Estimate Platelet Comment Polychromasia Poikilocytosis Anisocytosis Microcytosis Macrocytosis PT with INR 12.80 INR 1.08 PTT (Actin FS) 28.3 VBG pH 7.44 H POC VBG pCO2 28.0 L POC VBG pO2 47.2 H VBG HCO3 18.6 L VBG O2 Sat (Zach) 83.6 H VBG Base Excess -4.1 L Sodium Potassium Chloride Carbon Dioxide Anion Gap BUN Creatinine Creat Clearance w eGFR Random Glucose Lactic Acid Calcium Phosphorus Magnesium Total Bilirubin Direct Bilirubin GGT AST ALT Alkaline Phosphatase Creatine Kinase Creatine Kinase Index CK-MB (CK-2) Troponin I Total Protein Albumin Urine Color Yellow Urine Appearance Cloudy Urine pH 6.0 Ur Specific Amo 1.026 Urine Protein 2+ H Urine Glucose (UA) Negative Urine Ketones Trace H Urine Blood 1+ H Urine Nitrite Negative Urine Bilirubin Negative Urine Urobilinogen 1.0 Ur Leukocyte Esterase 3+ H Urine WBC (Auto) 358 Urine RBC (Auto) 4 Urine Casts (Auto) 11 U Epithel Cells (Auto) 3.9 Urine Bacteria (Auto) 1515.3 11/23/18 11/23/18 11/23/18 17:08 20:26 20:26 WBC RBC Hgb Hct MCV MCH MCHC RDW Plt Count MPV Absolute Neuts (auto) Neutrophils % Neutrophils % (Manual) Band Neutrophils % Lymphocytes % Lymphocytes % (Manual) Monocytes % Monocytes % (Manual) Eosinophils % Eosinophils % (Manual) Basophils % Basophils % (Manual) Myelocytes % (Man) Promyelocytes % (Man) Blast Cells % (Manual) Nucleated RBC % Metamyelocytes Hypochromia Platelet Estimate Platelet Comment Polychromasia Poikilocytosis Anisocytosis Microcytosis Macrocytosis PT with INR INR PTT (Actin FS) VBG pH POC VBG pCO2 POC VBG pO2 VBG HCO3 VBG O2 Sat (Zach) VBG Base Excess Sodium Potassium Chloride Carbon Dioxide Anion Gap BUN Creatinine Creat Clearance w eGFR Random Glucose Lactic Acid 4.1 H* 1.5 Calcium Phosphorus Magnesium Total Bilirubin Direct Bilirubin GGT AST ALT Alkaline Phosphatase Creatine Kinase Creatine Kinase Index CK-MB (CK-2) Troponin I 0.41 H Total Protein Albumin Urine Color Urine Appearance Urine pH Ur Specific Amo Urine Protein Urine Glucose (UA) Urine Ketones Urine Blood Urine Nitrite Urine Bilirubin Urine Urobilinogen Ur Leukocyte Esterase Urine WBC (Auto) Urine RBC (Auto) Urine Casts (Auto) U Epithel Cells (Auto) Urine Bacteria (Auto) 11/24/18 11/24/18 05:50 05:50 WBC 20.1 H RBC 2.78 L Hgb 9.0 L Hct 27.1 L MCV 97.3 H MCH 32.5 MCHC 33.4 RDW 15.4 Plt Count 260 MPV 7.6 Absolute Neuts (auto) 17.9 H Neutrophils % 89.1 H Neutrophils % (Manual) 75.0 Band Neutrophils % 15.0 Lymphocytes % 6.3 L D Lymphocytes % (Manual) 4.0 L D Monocytes % 4.3 D Monocytes % (Manual) 6 D Eosinophils % 0.1 Eosinophils % (Manual) 0.0 Basophils % 0.2 Basophils % (Manual) 0.0 Myelocytes % (Man) 0 Promyelocytes % (Man) 0 Blast Cells % (Manual) 0 Nucleated RBC % 0 Metamyelocytes 0 Hypochromia 0 Platelet Estimate Normal Platelet Comment Polychromasia 0 Poikilocytosis 0 Anisocytosis 0 Microcytosis 0 Macrocytosis 0 PT with INR INR PTT (Actin FS) VBG pH POC VBG pCO2 POC VBG pO2 VBG HCO3 VBG O2 Sat (Zach) VBG Base Excess Sodium 139 Potassium 3.3 L Chloride 108 H Carbon Dioxide 24 Anion Gap 7 L BUN 30 H Creatinine 1.4 H Creat Clearance w eGFR 48.05 Random Glucose 93 Lactic Acid Calcium 7.4 L Phosphorus 2.8 Magnesium 2.1 Total Bilirubin 0.4 Direct Bilirubin 0.2 GGT 317 H AST 34 ALT 40 Alkaline Phosphatase 223 H Creatine Kinase Creatine Kinase Index CK-MB (CK-2) Troponin I Total Protein 5.3 L Albumin 2.4 L Urine Color Urine Appearance Urine pH Ur Specific Amo Urine Protein Urine Glucose (UA) Urine Ketones Urine Blood Urine Nitrite Urine Bilirubin Urine Urobilinogen Ur Leukocyte Esterase Urine WBC (Auto) Urine RBC (Auto) Urine Casts (Auto) U Epithel Cells (Auto) Urine Bacteria (Auto) Active Medications Aspirin (Ecotrin -) 81 mg PO DAILY [facility] Last Admin: 11/24/18 10:00 Dose: 81 mg Atorvastatin Calcium (Lipitor -) 40 mg PO HS [facility] Last Admin: 11/23/18 22:20 Dose: 40 mg Duloxetine HCl (Cymbalta -) 60 mg PO DAILY [facility] Last Admin: 11/24/18 10:00 Dose: 60 mg Finasteride (Proscar -) 5 mg PO DAILY [facility] Last Admin: 11/24/18 10:00 Dose: 5 mg Heparin Sodium (Porcine) (Heparin -) 5,000 unit SQ TID [facility] Last Admin: 11/24/18 06:41 Dose: 5,000 unit Sodium Chloride (Normal Saline -) 1,000 mls @ 100 mls/hr IV ASDIR [facility] Last Admin: 11/23/18 20:30 Dose: 100 mls/hr Levofloxacin (Levaquin 750 Mg Premixed Ivpb -) 750 mg in 150 mls @ 100 mls/hr IVPB Q48H [facility]; Protocol Lorazepam (Ativan -) 1.5 mg PO Q4H PRN PRN Reason: ANXIETY Last Admin: 11/24/18 00:32 Dose: 1.5 mg Metoprolol Tartrate (Lopressor -) 25 mg PO BID [facility] Last Admin: 11/24/18 10:00 Dose: 25 mg Ticagrelor (Brilinta -) 90 mg PO BID [facility] Last Admin: 11/24/18 10:00 Dose: 90 mg IMAGING: -CXR: No evidence of active pulmonary disease. -EKG: Sinus Tachycardia, Possible LAE, VR 114, QTc 438 ASSESSMENT/PLAN: 88 y/o M with PMHx HTN, CAD (s/p stents x 5), chronic prostatitis is admitted for Sepsis. #Sepsis (TMax 101.9, HR 91, WBC 20.1, LA 4.1) -Likely due to UTI; Lactic Acid improved -Continue Levofloxacin 750mg daily -Give 1/2L NS now, Continue maintenance @ 100 mls/hr -Follow cultures and sensitivities #Troponinemia, Trending down -Likely demand in the setting of sepsis -Cardiology consulted, Appreciate rec's -Tele for additional 24 hours -No need for further cardiac workup as per cardio rec's #Elevated Alk Phos + Elevated GGT -Abdominal US to evaluate hepatobilliary tree #GILMA, Improving -Elevated Cr in the setting of sepsis and dehydration -Continue NS @ 100 mls/hr #CAD -Continue Aspirin, Ticagrelor 90mg PO BID, Atorvastatin 40mg PO HS, Metoprolol Tartrate 25mg PO BID #Anxiety -Continue Duloxetine 60mg PO Daily, Lorazepam 1.5mg PO Q4H PRN #BPH -Continue Finasteride 5mg PO Daily -Will Add Tamsulosin #FEN -NS @ 100 mls/hr -Hypokalemia, Repleted -Na contolled diet #PPx -DVT: Heparin TID Visit type - Emergency Visit Emergency Visit: Yes ED Registration Date: 11/23/18 Care time: The patient presented to the Emergency Department on the above date and was hospitalized for further evaluation of their emergent condition. - New Patient This patient is new to me today: Yes Date on this admission: 11/24/18 - Critical Care Critical Care patient: No - Discharge Referral Referred to [facility] Med P.C.: No
[2018-11-24] MEDS ORDERED: TAMSULOSIN HCL 0.4 MG CAP ONE (15:59)
[2018-11-24] MEDS: TAMSULOSIN HCL 0.4 MG CAP PO SCH (16:11)
--- NOTE | 2018-11-24 16:15 | ECHO ---
Name: KRISTEN GLORIA Exam:Adult Echocardiogram Study Date: 11/24/2018 12:17 PM Age: 88 yrs Reason For Study: CAD Height: 70 in Weight: 176 lb BSA: 2.0 m2 MMode/2D Measurements & Calculations IVSd: 0.91 cm Ao root diam: 2.7 cm LVIDd: 4.5 cm LA dimension: 2.9 cm LVIDs: 3.0 cm LVPWd: 0.86 cm EDV(Teich): 90.4 ml LVOT diam: 2.0 cm ESV(Teich): 35.7 ml LAV (MOD-bp): 49.6 ml Doppler Measurements & Calculations MV E max phan: 75.2 cm/sec Ao V2 max: 109.9 cm/sec MV A max phan: 73.7 cm/sec Ao max P.8 mmHg MV E/A: 1.0 MV dec time: 0.13 sec JLUIS(V,D): 2.8 cm2 LV V1 max P.8 mmHg TR max phan: 292.3 cm/sec LV V1 max: 98.0 cm/sec TR max P.4 mmHg PA V2 max: 114.0 cm/sec Med Peak E' Phan: 8.8 cm/sec PA max P.2 mmHg Med E/e': 8.5 Lat Peak E' Phan: 10.4 cm/sec Lat E/e': 7.2 Procedure A complete two-dimensional transthoracic echocardiogram was performed (2D, M-mode, Doppler and color flow Doppler). Left Ventricle The left ventricle is normal in size. Left ventricular systolic function is normal. Ejection Fraction = 55- 60%. No regional wall motion abnormalities noted. Right Ventricle The right ventricle is normal size. The right ventricular systolic function is normal. Atria The left atrial size is normal. Right atrial size is normal. Mitral Valve The mitral valve is normal in structure and function. There is trace mitral regurgitation. Tricuspid Valve The tricuspid valve is normal in structure and function. There is mild tricuspid regurgitation. Pulmo nary artery systolic pressure is at least 41 mmHg assuming RA pressure of 3 mmHg. Aortic Valve There is mild aortic sclerosis.;. No aortic regurgitation is present. Pulmonic Valve The pulmonic valve is not well visualized. Great Vessels The aortic root is normal size. Pericardium/Pleura There is no pericardial effusion. Interpretation Summary The left ventricle is normal in size. Left ventricular systolic function is normal. No regional wall motion abnormalities noted. Ejection Fraction = 55-60%. The right ventricular systolic function is normal. The left atrial size is normal. Right atrial size is normal. There is trace mitral regurgitation. There is mild tricuspid regurgitation. Pulmonary artery systolic pressure is at least 41 mmHg assuming RA pressure of 3 mmHg There is mild aortic sclerosis. There is no pericardial effusion. Previous study is not available for comparison Ryan Mcfarland MD 11/24/2018 04:14 PM
[2018-11-24 22:33] VITALS: BMI 26.9
[2018-11-24] MEDS: ATORVASTATIN CA 40 MG TABLET (FP) PO SCH (22:46)
[2018-11-24] MEDS: SODIUM CHLORIDE 1,000 ML IV SCH (23:10)
[2018-11-25] MEDS: HEPARIN NA (PORCINE) 5,000 UNITS/ML 1ML VIAL SQ SCH ×3 (05:20→22:56)
[2018-11-25] MEDS: LORazepam 1 MG TABLET PO PRN (06:12)
[2018-11-25 07:28] LABS: BASO % 0.4 % (0-2.0); HEMATOCRIT 27.2 % (35.4-49); HEMOGLOBIN 9.1 GM/dL (11.7-16.9); LYMPH % 9.4 % (8-40); MCH 31.9 pg (25.7-33.7); MCHC 33.4 g/dl (32.0-35.9); MEAN CELL VOLUME 95.4 fl (80-96); MEAN PLT VOLUME 7.7 fl (7.5-11.1); NEUT % 81.2 % (42.8-82.8); PLATELET COUNT 323 K/MM3 (134-434); RBC 2.85 M/mm3 (4.00-5.60); RDW 15.2 % (11.9-15.9); WHITE BLOOD COUNT 15.2 K/mm3 (4.0-10.0)
[2018-11-25 07:42] LABS: ALBUMIN 2.6 g/dl (3.4-5.0); ALK PHOS 200 U/L (45-117); ANION GAP 7 MMOL/L (8-16); BILIRUBIN,TOTAL 0.3 mg/dL (0.2-1); BLOOD UREA NITROGEN 26 mg/dL (7-18); CALCIUM 7.8 mg/dL (8.5-10.1); CHLORIDE 112 mmol/L (98-107); CO2 22 mmol/L (21-32); CREATININE 1.2 mg/dL (0.55-1.3); GLUCOSE,RANDOM 99 mg/dL (74-106); MAGNESIUM 2.2 mg/dL (1.8-2.4); PHOSPHOROUS 2.5 mg/dL (2.5-4.9); POTASSIUM 4.5 mmol/L (3.5-5.1); SGOT/AST 31 U/L (15-37); SGPT/ALT 36 U/L (13-61); SODIUM 141 mmol/L (136-145); TOT PROT 5.2 g/dl (6.4-8.2)
[2018-11-25] MEDS ORDERED: PT OWN MED DRAWER 7, Y5N ONE (09:28)
[2018-11-25] MEDS: ASPIRIN COATED 81 MG TABLET.EC PO SCH (10:12)
[2018-11-25] MEDS: FINASTERIDE 5 MG TABLET (FP) PO SCH (10:12)
[2018-11-25] MEDS: METOPROLOL TARTRATE 25 MG TABLET (FP) PO SCH ×2 (10:12→22:55)
[2018-11-25] MEDS: TICAGRELOR 90 MG TABLET PO SCH ×2 (10:13→22:55)
[2018-11-25] MEDS: DULoxetine HCL 30 MG CAPSULE.DR (FP) PO SCH (10:13)
[2018-11-25] MEDS: TAMSULOSIN HCL 0.4 MG CAP PO SCH (10:13)
--- NOTE | 2018-11-25 11:42 | PN ---
Physical Exam: SUBJECTIVE: Patient seen and examined this am in the presence of . Feels better, Dysuria and appetite improved. No new complaints. No acute overnight events as per nursing. OBJECTIVE: Vital Signs Period Temp Pulse Resp BP Sys/Mcgowan Pulse Ox Last 24 Hr 97.6 F-98.6 F 87-96 18-20 108-145/63-80 99-99 GENERAL: A&Ox3, NAD HEAD: NCAT EYES: PERRL, EOMI ENT: moist mucous membranes NECK: Supple LUNGS: CTA B/L, no wheezes, no crackles HEART: Regular rate and rhythm, S1, S2 without murmur ABDOMEN: Soft, nontender, nondistended, + bowel sounds, no guarding EXTREMITIES: no edema NEUROLOGICAL: Cranial nerves II through XII grossly intact. Normal speech SKIN: Warm, dry Laboratory Results - last 24 hr 11/24/18 11/25/18 11/25/18 05:50 05:30 05:30 WBC 15.2 H RBC 2.85 L Hgb 9.1 L Hct 27.2 L MCV 95.4 MCH 31.9 MCHC 33.4 RDW 15.2 Plt Count 323 D MPV 7.7 Absolute Neuts (auto) 12.4 H Neutrophils % 81.2 Neutrophils % (Manual) 75.0 Band Neutrophils % 15.0 Lymphocytes % 9.4 D Lymphocytes % (Manual) 4.0 L D Monocytes % 8.0 D Monocytes % (Manual) 6 D Eosinophils % 1.0 D Eosinophils % (Manual) 0.0 Basophils % 0.4 Basophils % (Manual) 0.0 Myelocytes % (Man) 0 Promyelocytes % (Man) 0 Blast Cells % (Manual) 0 Nucleated RBC % 0 0 Metamyelocytes 0 Hypochromia 0 Platelet Estimate Normal Polychromasia 0 Poikilocytosis 0 Anisocytosis 0 Microcytosis 0 Macrocytosis 0 Sodium 141 Potassium 4.5 Chloride 112 H Carbon Dioxide 22 Anion Gap 7 L BUN 26 H Creatinine 1.2 Creat Clearance w eGFR 57.41 Random Glucose 99 Calcium 7.8 L Phosphorus 2.5 Magnesium 2.2 Total Bilirubin 0.3 AST 31 ALT 36 Alkaline Phosphatase 200 H Total Protein 5.2 L Albumin 2.6 L Microbiology 11/23/18 17:08 Urine - Urine Clean Catch Urine Culture - Preliminary Non Lactose Fermenting Gnb Group D Strep Or Entero Coccus 11/23/18 17:08 Blood - Peripheral Venous Blood Culture - Preliminary NO GROWTH OBTAINED AFTER 24 HOURS, INCUBATION TO CONTINUE FOR 4 DAYS. 11/23/18 17:08 Blood - Peripheral Venous Blood Culture - Preliminary NO GROWTH OBTAINED AFTER 24 HOURS, INCUBATION TO CONTINUE FOR 4 DAYS. Active Medications Aspirin (Ecotrin -) 81 mg PO DAILY [facility] Last Admin: 11/25/18 10:12 Dose: 81 mg Atorvastatin Calcium (Lipitor -) 40 mg PO HS [facility] Last Admin: 11/24/18 22:46 Dose: 40 mg Duloxetine HCl (Cymbalta -) 60 mg PO DAILY [facility] Last Admin: 11/25/18 10:13 Dose: 60 mg Finasteride (Proscar -) 5 mg PO DAILY [facility] Last Admin: 11/25/18 10:12 Dose: 5 mg Heparin Sodium (Porcine) (Heparin -) 5,000 unit SQ TID [facility] Last Admin: 11/25/18 05:20 Dose: Not Given Sodium Chloride (Normal Saline -) 1,000 mls @ 100 mls/hr IV ASDIR [facility] Last Admin: 11/24/18 23:10 Dose: 100 mls/hr Levofloxacin (Levaquin 500 Mg Premixed Ivpb -) 500 mg in 100 mls @ 100 mls/hr IVPB DAILY [facility]; Protocol Last Admin: 11/25/18 10:11 Dose: 100 mls/hr Lorazepam (Ativan -) 1.5 mg PO Q4H PRN PRN Reason: ANXIETY Last Admin: 11/25/18 06:12 Dose: 1.5 mg Metoprolol Tartrate (Lopressor -) 25 mg PO BID [facility] Last Admin: 11/25/18 10:12 Dose: 25 mg Tamsulosin HCl (Flomax -) 0.4 mg PO DAILY@0830 [facility] Last Admin: 11/25/18 10:13 Dose: 0.4 mg Ticagrelor (Brilinta -) 90 mg PO BID [facility] Last Admin: 11/25/18 10:13 Dose: 90 mg IMAGING: -CXR: No evidence of active pulmonary disease. -Abdominal US: Cholelithiasis is noted. There is no definite sonographic evidence of acute cholecystitis. Early acute cholecystitis may not be demonstrable on sonography. No biliary tract dilatation is identified. There is no obvious hepatic abnormality. -EKG: Sinus Tachycardia, Possible LAE, VR 114, QTc 438 -ECHO: LV systolic function is normal, No regional WMA, EF 55-60%, RV systolic function is normal, LA and RA size is Normal, Trace MR, Mild TR ASSESSMENT/PLAN: 88 y/o M with PMHx HTN, CAD (s/p stents x 5), chronic prostatitis is admitted for Sepsis. #Sepsis -Likely due to UTI -Continue Levofloxacin; CrCl calculated 43, Pharmacy recommends to continue at 500mg daily (Started on 11/23) -NS @ 100 mls/hr -Follow cultures and sensitivities #Troponinemia, Trending down -Likely demand in the setting of sepsis -Cardiology consulted, Appreciate rec's -No need for further cardiac workup as per cardio rec's #Elevated Alk Phos + Elevated GGT -Abdominal US noted above -Alk Phos trending down #GILMA, Improving -Elevated Cr in the setting of sepsis and dehydration -Continue NS @ 100 mls/hr #CAD -Continue Aspirin, Ticagrelor 90mg PO BID, Atorvastatin 40mg PO HS, Metoprolol Tartrate 25mg PO BID #Anxiety -Continue Duloxetine 60mg PO Daily, Lorazepam 1.5mg PO Q4H PRN #BPH -Finasteride 5mg PO Daily, Tamsulosin 0.4 mg PO daily #FEN -NS @ 100 mls/hr -Hypokalemia, Repleted -Na contolled diet #PPx -DVT: Heparin TID Dispo: Transfer to med/surg Visit type - Emergency Visit Emergency Visit: Yes ED Registration Date: 11/23/18 Care time: The patient presented to the Emergency Department on the above date and was hospitalized for further evaluation of their emergent condition. - New Patient This patient is new to me today: No - Critical Care Critical Care patient: No - Discharge Referral Referred to [facility] Med P.C.: No
--- NOTE | 2018-11-25 12:03 | PN ---
Physical Exam: SUBJECTIVE: Patient seen and examined AT bedside. Feels much better. Remains afebrile. No acute distress. OBJECTIVE: Vital Signs Period Temp Pulse Resp BP Sys/Mcgowan Pulse Ox Last 24 Hr 97.6 F-98.6 F 87-96 18-20 108-145/63-80 99-99 GENERAL: The patient is awake, alert, and fully oriented, in no acute distress. HEENT : Unremarkable. LUNGS: Breath sounds equal, clear to auscultation bilaterally, no wheezes, no crackles, no accessory muscle use. HEART: Regular rate and rhythm, S1, S2 without murmur, rub or gallop. ABDOMEN: Soft, nontender, nondistended, normoactive bowel sounds, no guarding, no rebound, no hepatosplenomegaly, no masses. EXTREMITIES: 2+ pulses, warm, well-perfused, no edema. NEUROLOGICAL: Cranial nerves II through XII grossly intact. Normal speech, gait not observed. PSYCH: Normal mood, normal affect. SKIN: Warm, dry, normal turgor, no rashes or lesions noted Laboratory Results - last 24 hr 11/24/18 11/25/18 11/25/18 05:50 05:30 05:30 WBC 15.2 H RBC 2.85 L Hgb 9.1 L Hct 27.2 L MCV 95.4 MCH 31.9 MCHC 33.4 RDW 15.2 Plt Count 323 D MPV 7.7 Absolute Neuts (auto) 12.4 H Neutrophils % 81.2 Neutrophils % (Manual) 75.0 Band Neutrophils % 15.0 Lymphocytes % 9.4 D Lymphocytes % (Manual) 4.0 L D Monocytes % 8.0 D Monocytes % (Manual) 6 D Eosinophils % 1.0 D Eosinophils % (Manual) 0.0 Basophils % 0.4 Basophils % (Manual) 0.0 Myelocytes % (Man) 0 Promyelocytes % (Man) 0 Blast Cells % (Manual) 0 Nucleated RBC % 0 0 Metamyelocytes 0 Hypochromia 0 Platelet Estimate Normal Polychromasia 0 Poikilocytosis 0 Anisocytosis 0 Microcytosis 0 Macrocytosis 0 Sodium 141 Potassium 4.5 Chloride 112 H Carbon Dioxide 22 Anion Gap 7 L BUN 26 H Creatinine 1.2 Creat Clearance w eGFR 57.41 Random Glucose 99 Calcium 7.8 L Phosphorus 2.5 Magnesium 2.2 Total Bilirubin 0.3 AST 31 ALT 36 Alkaline Phosphatase 200 H Total Protein 5.2 L Albumin 2.6 L Active Medications Generic Name Dose Route Start Last Admin Trade Name Freq PRN Reason Stop Dose Admin Aspirin 81 mg 11/24/18 10:00 11/25/18 10:12 Ecotrin - PO 81 mg DAILY NUNU Administration Atorvastatin Calcium 40 mg 11/23/18 22:00 11/24/18 22:46 Lipitor - PO 40 mg HS NUNU Administration Duloxetine HCl 60 mg 11/24/18 10:00 11/25/18 10:13 Cymbalta - PO 60 mg DAILY NUNU Administration Finasteride 5 mg 11/24/18 10:00 11/25/18 10:12 Proscar - PO 5 mg DAILY NUNU Administration Heparin Sodium (Porcine) 5,000 unit 11/23/18 22:00 11/25/18 05:20 Heparin - SQ Not Given TID NUNU Sodium Chloride 1,000 mls @ 100 mls/hr 11/23/18 20:30 11/24/18 23:10 Normal Saline - IV 100 mls/hr ASDIR NUNU Administration Levofloxacin 500 mg in 100 mls @ 100 mls/hr 11/24/18 13:45 11/25/18 10:11 Levaquin 500 Mg Premixed Ivpb - IVPB 100 mls/hr DAILY NUNU Administration Protocol Lorazepam 1.5 mg 11/23/18 20:25 11/25/18 06:12 Ativan - PO 1.5 mg Q4H PRN Administration ANXIETY Metoprolol Tartrate 25 mg 11/23/18 22:00 11/25/18 10:12 Lopressor - PO 25 mg BID NUNU Administration Tamsulosin HCl 0.4 mg 11/24/18 14:03 11/25/18 10:13 Flomax - PO 0.4 mg DAILY@0830 NUNU Administration Ticagrelor 90 mg 11/23/18 22:00 11/25/18 10:13 Brilinta - PO 90 mg BID NUNU Administration ASSESSMENT/PLAN: 88 y/o M w/ PMHx HTN, CAD s/p stents x 5, chronic prostatitis, p/w 4 days fever (Tmax 103 at home), malaise, lethargy, decreased appetite, worsening acute dysuria on chronic dysuria #A - Sepsis 2/2 UTI vs. acute on chronic prostatitis -Elevated troponin may be chronic or demand ischemia -GILMA vs. CKD >> Improving -HTN -anxiety d/o NOS. -elevated lactate >> Normalized. #P - troponins, lactate >>Trended down. -cont Levofloxacin for now as patient seems to be responding >> urine cX >>> GNB/ Enterococcus ??? >> f/u with C/S . - would d/c IVF -restarted home ASA, Brilinta, Lopressor, Duloxetine, Lipitor, finasteride -PO Ativan PRN - added Flomax, preferably to be given qHS. -Na-controlled diet -heparin subq for DVT PPx -full code - telemetry for Troponinemia >> NSTEMI ? TYPE 2 >>>> Doubt ACS. cardio input NOTED. Can d/c telemetry. Plan d.w the patient/ at bedside. Visit type - Emergency Visit Emergency Visit: Yes ED Registration Date: 11/23/18 Care time: The patient presented to the Emergency Department on the above date and was hospitalized for further evaluation of their emergent condition. - New Patient This patient is new to me today: No - Critical Care Critical Care patient: No - Discharge Referral Referred to [facility] No
[2018-11-25] MEDS: SODIUM CHLORIDE 1,000 ML IV SCH (20:30)
[2018-11-25] MEDS: ATORVASTATIN CA 40 MG TABLET (FP) PO SCH (22:56)
[2018-11-26] MEDS: HEPARIN NA (PORCINE) 5,000 UNITS/ML 1ML VIAL SQ SCH ×2 (06:31→13:52)
[2018-11-26 07:56] LABS: BASO % 0.4 % (0-2.0); EOS % 1.5 % (0-4.5); HEMATOCRIT 26.4 % (35.4-49); HEMOGLOBIN 8.9 GM/dL (11.7-16.9); MCH 32.1 pg (25.7-33.7); MCHC 33.8 g/dl (32.0-35.9); MEAN CELL VOLUME 94.9 fl (80-96); MEAN PLT VOLUME 7.7 fl (7.5-11.1); NEUT % 78.1 % (42.8-82.8); PLATELET COUNT 360 K/MM3 (134-434); RBC 2.78 M/mm3 (4.00-5.60); RDW 15.2 % (11.9-15.9); WHITE BLOOD COUNT 10.1 K/mm3 (4.0-10.0)
[2018-11-26 08:07] LABS: ALBUMIN 2.5 g/dl (3.4-5.0); ALK PHOS 202 U/L (45-117); ANION GAP 6 MMOL/L (8-16); BILIRUBIN,TOTAL 0.4 mg/dL (0.2-1); BLOOD UREA NITROGEN 14 mg/dL (7-18); CALCIUM 7.8 mg/dL (8.5-10.1); CHLORIDE 112 mmol/L (98-107); CO2 21 mmol/L (21-32); CREATININE 1.1 mg/dL (0.55-1.3); GLUCOSE,RANDOM 103 mg/dL (74-106); MAGNESIUM 2.1 mg/dL (1.8-2.4); PHOSPHOROUS 3.4 mg/dL (2.5-4.9); SGOT/AST 33 U/L (15-37); SGPT/ALT 39 U/L (13-61); SODIUM 139 mmol/L (136-145); TOT PROT 5.3 g/dl (6.4-8.2)
[2018-11-26] MEDS: ASPIRIN COATED 81 MG TABLET.EC PO SCH (10:08)
[2018-11-26] MEDS: FINASTERIDE 5 MG TABLET (FP) PO SCH (10:08)
[2018-11-26] MEDS: TAMSULOSIN HCL 0.4 MG CAP PO SCH (10:08)
[2018-11-26] MEDS: METOPROLOL TARTRATE 25 MG TABLET (FP) PO SCH (10:08)
[2018-11-26] MEDS: DULoxetine HCL 30 MG CAPSULE.DR (FP) PO SCH (10:08)
[2018-11-26] MEDS: TICAGRELOR 90 MG TABLET PO SCH (10:09)
[2018-11-26 13:03] VITALS: TEMP 98.4
[2018-11-26] MEDS ORDERED: BISACODYL 5 MG TABLET.DR (FP) PO PRN (13:28)
--- NOTE | 2018-11-26 14:08 | PN ---
Progress Note (short form) - Note Progress Note: ID consult dictated imp/reccd 88 yo man admitted with fever, chronic dysuria, no suprapubic pain, no perineal pain- 11/23 he had fever and leukocytosis and pyuria treated with levaquin day #4 urine culture grew enterococcus and proteus both sensitive to levaquin prior history of chronic prostatatis and BPH never had a rectal exam! feels back to normal and wants to go home pen allergy- ?rash, denies anaphylaxis, at a young age, not sure suggest finishing levaquin po for total 14 days for UTI (now day #4) suggest he see urologist within the next 10 days as well Problem List - Problems (1) UTI (urinary tract infection) Code(s): N39.0 - URINARY TRACT INFECTION, SITE NOT SPECIFIED Qualifiers: Urinary tract infection type: acute cystitis Hematuria presence: without hematuria Qualified Code(s): N30.00 - Acute cystitis without hematuria (2) Penicillin allergy Code(s): Z88.0 - ALLERGY STATUS TO PENICILLIN
--- NOTE | 2018-11-26 15:05 | DS ---
Physical Exam: SUBJECTIVE: Patient seen and examined this am in the presence of . Feels better, Dysuria continues to improve. No new complaints. No acute overnight events as per nursing. OBJECTIVE: Vital Signs Period Temp Pulse Resp BP Sys/Mcgowan Pulse Ox Last 24 Hr 97.7 F-98.6 F 83-94 17-18 129-144/76-83 97-100 PHYSICAL EXAM GENERAL: A&Ox3, NAD HEAD: NCAT EYES: PERRL, EOMI ENT: moist mucous membranes NECK: Supple LUNGS: CTA B/L, no wheezes, no crackles HEART: Regular rate and rhythm, S1, S2 without murmur ABDOMEN: Soft, nontender, nondistended, + bowel sounds, no guarding EXTREMITIES: no edema NEUROLOGICAL: Cranial nerves II through XII grossly intact. Normal speech SKIN: Warm, dry LABS Laboratory Results - last 24 hr 11/26/18 11/26/18 06:50 06:50 WBC 10.1 H RBC 2.78 L Hgb 8.9 L Hct 26.4 L MCV 94.9 MCH 32.1 MCHC 33.8 RDW 15.2 Plt Count 360 MPV 7.7 Absolute Neuts (auto) 7.9 Neutrophils % 78.1 Lymphocytes % 13.0 D Monocytes % 7.0 Eosinophils % 1.5 Basophils % 0.4 Nucleated RBC % 0 Sodium 139 Potassium 4.0 Chloride 112 H Carbon Dioxide 21 Anion Gap 6 L BUN 14 Creatinine 1.1 Creat Clearance w eGFR 63.47 Random Glucose 103 Calcium 7.8 L Phosphorus 3.4 Magnesium 2.1 Total Bilirubin 0.4 AST 33 ALT 39 Alkaline Phosphatase 202 H Total Protein 5.3 L Albumin 2.5 L Microbiology 11/23/18 17:08 Urine - Urine Clean Catch Urine Culture - Final Proteus Vulgaris Enterococcus Faecalis 11/23/18 17:08 Blood - Peripheral Venous Blood Culture - Preliminary NO GROWTH OBTAINED AFTER 48 HOURS, INCUBATION TO CONTINUE FOR 3 DAYS. 11/23/18 17:08 Blood - Peripheral Venous Blood Culture - Preliminary NO GROWTH OBTAINED AFTER 48 HOURS, INCUBATION TO CONTINUE FOR 3 DAYS. IMAGING: -CXR: No evidence of active pulmonary disease. -Abdominal US: Cholelithiasis is noted. There is no definite sonographic evidence of acute cholecystitis. Early acute cholecystitis may not be demonstrable on sonography. No biliary tract dilatation is identified. There is no obvious hepatic abnormality. -EKG: Sinus Tachycardia, Possible LAE, VR 114, QTc 438 -ECHO: LV systolic function is normal, No regional WMA, EF 55-60%, RV systolic function is normal, LA and RA size is Normal, Trace MR, Mild TR HOSPITAL COURSE: Date of Admission:11/23/18 Date of Discharge: 11/26/18 88 y/o M with PMHx HTN, CAD (s/p stents x 5), chronic prostatitis is admitted for Sepsis due to UTI. Imaging, Micro and recent lab work noted above. Patient completed a course of IV Levaquin. Infectious disease was consulted and recommended a total 14 day course of ABx. Patient was also given IV hydration and his initial sepsis resolved. Initial labwork revealed troponinemia that eventually trended down. Cardiology was consulted and recommended no need for further cardiac workup at this time. His GILMA, Leukocytosis and elevated alk phos improved. Patient was started on Tamsulosin in light of his BPH and prescribed PO Levaquin to complete his ABx course. Patient was discharged home with strict instruction for physician follow up and medication compliance. Minutes to complete discharge: 36 Discharge Summary Reason For Visit: UTI/SEPSIS Current Active Problems UTI (urinary tract infection) (Acute) Penicillin allergy (Chronic) Condition: Improved - Instructions Diet, Activity, Other Instructions: You were admitted to the hospital because you had a urinary infection. You were treated with IV antibiotics and your symptoms improved. Medication Changes: 1. Continue Tamsulosin 0.4mg daily 2. Continue Levaquin 750mg daily for an additional 10 days (11/27-12/06) Follow up with the following physicians: 1. Primary care physician in one week 2. Urology--Dr. 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 Raines for stones in your gall bladder . 2-3 weeks Continue all your other medications as prescribed Please return to the ER if you have any signs or symptoms of chest pain, shortness of breath, uncontrollable fever, chills, nausea, vomiting, numbness, tingling, or weakness in any part of your body, changes in vision, slurred speech, changes in speech/gait, or dizziness. Please return to the ER if symptoms persist, worsen, or new symptoms arise. Referrals: Siddharth Raines MD [Staff Physician] - Jose Crenshaw MD [Staff Physician] - 1 Week Lj Ornelas MD [Staff Physician] - Disposition: HOME - Home Medications Comprehensive Discharge Medication List: Ambulatory Orders Atorvastatin Ca [Lipitor] 40 mg PO HS 10/02/18 Duloxetine HCl [Cymbalta] 60 mg PO DAILY 10/02/18 Metoprolol Tartrate 25 mg PO BID 10/02/18 Ticagrelor [Brilinta -] 90 mg PO BID 10/02/18 Aspirin [Ecotrin] 81 mg PO DAILY 11/23/18 Finasteride [Proscar] 5 mg PO DAILY 11/23/18 Lorazepam 0.5 mg PO DAILY 11/24/18 Levofloxacin [Levaquin] 750 mg PO DAILY #10 tablet 11/26/18 Tamsulosin HCl [Flomax -] 0.4 mg PO HS #30 cap.er.24h 11/26/18 This patient is new to me today: No Emergency Visit: Yes ED Registration Date: 11/23/18 Care time: The patient presented to the Emergency Department on the above date and was hospitalized for further evaluation of their emergent condition. Critical Care patient: No - Discharge Referral Referred to [facility] Med [facility].C.: No
--- NOTE | 2018-11-26 15:06 | PN ---
Teaching Attending Note Name of Resident: Charlotte Lopez ATTENDING PHYSICIAN STATEMENT I saw and evaluated the patient. I reviewed the resident's note and discussed the case with the resident. I agree with the resident's findings and plan as documented. SUBJECTIVE: minimal dysuria. no ANAYA , no fever or chills. No abd pain OBJECTIVE: NAD CV: RRR, no MRG Lungs: CTAB Abd:soft, TTP in suprapubic area, no rebound tenderness or guarding Ext : no edema ASSESSMENT AND PLAN: 88 y/o man with h/o prostatitis ( ? chronic ), CAD, HTN, s/p stents, transient A fib after stenting, GERD, and HLP who presented with dyuria . He was found to have UTI. ? acute prostatitis 1- complicated UTI, Possible acute prostatitis. urine cx reviewed. - ID consult appreciated - cont levaquin x 10 mor edays ( total 14 ) - flomax - f/u uro 2- H/o CAD, had elevated trop . f/u with card as outpt 3- GILMA: resolved. 4- Elevated alk phos, US with no cholecystitis. has stones. f/u with Dr. jolley as out pt dispo : Dc home
[2018-11-26 15:30] VITALS: BP 143/76; PULSE 88
--- NOTE | 2018-11-26 19:41 | CONS ---
DATE OF CONSULTATION: DATE OF DICTATION: 11/26/2018 REQUESTED BY: Hospitalist service. HISTORY OF PRESENT ILLNESS: This is an 88-year-old man admitted with fever, chronic dysuria on November 23. Prior to that, 3 days prior to admission, he had an isolated episode of fever and chills at home that responded to Tylenol. This was on Saturday night. He had recurrent fever again on the and came to the emergency room. In the ER he was found to have a fever, leukocytosis and pyuria. Complained of dysuria which was unchanged. He had no suprapubic pain or perineal pain. He was treated with Levaquin and is now on day 4. Urine culture has grown enterococcus and proteus, both sensitive to Levaquin and he is anxious to go home. He has a prior history of chronic prostatitis. He said several years ago he took Cipro for over a year. He has a history of BPH and is on finasteride. He now feels back to normal and wants to go home. ALLERGIES: He has a history of a PENICILLIN allergy of unclear etiology, he thinks maybe a rash. He denies anaphylaxis. It was at a young age and he is not sure. 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 PAST MEDICAL HISTORY: Hypertension, hyperlipidemia, coronary artery disease status post 5 stents, GERD, remote history of chronic prostatitis. SURGICAL HISTORY: Notable for total hip replacement which was recent and an appendectomy. SOCIAL HISTORY: There is no history of smoking or substance use. He drinks alcohol socially. MEDICATIONS: At home include atorvastatin, Cymbalta, metoprolol, Brilinta, Ecotrin and Proscar. REVIEW OF SYSTEMS: As per HPI. PHYSICAL EXAM: General: He is a pleasant man in no acute distress. He is sitting up. Vital Signs: His last temperature is 98.4, pulse of 88, blood pressure 140/66, respiratory rate is 18. HEENT: He is normocephalic. His eyes are anicteric. Neck: Supple. Lungs: Clear to auscultation. Heart: Regular rate and rhythm. Abdomen: Soft, nontender. He has no suprapubic or CVA tenderness. Extremities: Without edema. IN SUMMARY: This is an 88-year-old man who at minimum has urinary tract infection that has responded well to IV quinolone treatment. I would suggest we finish the Levaquin course for 14 days to treat for urinary tract infection, now day 4. I would suggest he see his urologist within the next 10 days as well. He is anxious to go home and wishes to continue his care as an outpatient. ROSA ISELA GODWIN M.D. [id number]
== END 2018-11-26 15:36 | disposition home or self-care (01) | DRG 872 ==
LOC: JER 16:03 → INTOOBSV 19:41 → JERBED 19:41 → OBSVTOIN 20:26 → J4W 11-24 21:24
PROVIDERS: ADMIT Internal Medicine; ATTEND Internal Medicine
DX: A41.9 Sepsis, unspecified organism (principal); N39.0 Urinary tract infection, site not specified; N17.9 Acute kidney failure, unspecified; I24.8 Other forms of acute ischemic heart disease; E87.2 Acidosis; I25.10 Atherosclerotic heart disease of native coronary artery without angina pectoris; N40.0 Benign prostatic hyperplasia without lower urinary tract symptoms; K21.9 Gastro-esophageal reflux disease without esophagitis; F41.9 Anxiety disorder, unspecified; R00.0 Tachycardia, unspecified; N41.1 Chronic prostatitis; E78.5 Hyperlipidemia, unspecified; I48.91 Unspecified atrial fibrillation; D64.9 Anemia, unspecified; B95.2 Enterococcus as the cause of diseases classified elsewhere; E86.0 Dehydration; E87.6 Hypokalemia; I12.9 Hypertensive chronic kidney disease with stage 1 through stage 4 chronic kidney disease, or unspecified chronic kidney disease; N18.9 Chronic kidney disease, unspecified; Z95.5 Presence of coronary angioplasty implant and graft; Z88.0 Allergy status to penicillin
CPT/HCPCS: 36415; 71045-TC-FY; 76705-TC; 80048; 80053; 80076; 81003; 82550; 82553; 82803; 82977; 83605; 83735; 84100; 84484; 85025; 85610; 85730; 87040; 87086; 87186; 93005; 93010; 93306-TC; 99283-25; G0378; J1644; J7030